=== PATIENT | female | born 1970 | race Caucasian/White ===

== ENCOUNTER 2020-08-28 07:06 | Day surgery (SDC) | payer OTHER ==
[2020-08-23 10:13] LABS: Absolute Lymphocytes (CBC) 3.2 K/uL (0.7-4.9); Basophils % 1.2 % (0-1.3); Hematocrit 38.9 % (36.0-45.0); Lymphocytes % 34.9 % (15.3-44.8); RBC Red Blood Cell Count 4.57 M/uL (3.86-4.86)
[2020-08-23 10:23] LABS: Potassium 3.6 mmol/L (3.5-5.1)
--- NOTE | 2020-08-23 10:48 | RAD REPORT ---
EXAM DESCRIPTION: RAD - Chest Pa And Lat (2 Views) - 08/23/2020 10:19 am CLINICAL HISTORY: pre op Chest pain. COMPARISON: No comparisons FINDINGS: The lungs are clear. The heart is normal in size. No displaced fractures. IMPRESSION: No acute or concerning finding suspected.
--- NOTE | 2020-08-24 09:34 | EKG ---
Test Date: 2020-08-23 Test Time: 09:47:38 Plastic Maker: IRISH MEASUREMENT RESULTS: Intervals: Rate: 82 [place]: 144 QRSD: 82 QT: 380 QTc: 443 [place]: P: 59 [place]: 144 QRS: -34 T: 44 INTERPRETIVE STATEMENTS: Normal sinus rhythm Left axis deviation Abnormal ECG No previous ECG available for comparison Electronically Signed On 08-24-20 09:31:10 CDT by Andrew Padilla
--- OUTSIDE RECORDS SUMMARY | 2020-08-28 07:08 | XMS REPORT ---
:1970 Author Organization [facility] Address [address] [place], [address] [place] [address] Care Team Providers Name Role Phone Clemente Unavailable [phone] PROBLEMS Type Condition ICD9-CM GBC85-LX Onset Condition SNOMED Code Notes Code Code Dates Status Problem Adult ADHD (attention F90.9 Active 292693084 deficit hyperactivity disorder) Problem History of bowel Z90.49 Active 445910406 resection Problem Hypertriglyceridemia E78.1 Active 023083419 Problem Type 2 diabetes E11.65 Active 49204439 mellitus with hyperglycemia, without long-term current use of insulin Problem Hearing loss of right H91.91 Active 085296405 ear, unspecified hearing loss type Problem Insomnia, unspecified G47.00 Active 700004621 type Problem Panic disorder F41.0 Active 686197897 [episodic paroxysmal anxiety] Problem Generalized anxiety F41.1 Active 36846853 disorder ALLERGIES Allergen (clinical Drug/Non Drug Reaction Allergy Type Onset Date S tatus drug ingredient) Allergy documented on EMR levothyroxine Levothyroxine Rash,itching,sever Drug Allergy Active Sodium(ND e irritability Code:[address]-51) latex itching,swelling,a Non Drug Active naphylaxis Allergy levothyroxine Synthroid(ND Rash,itching,sever Drug Allergy Active Code:[address]-86) e irritablility ENCOUNTERS from 1970 to 2020-08-12 Encounter Location Date Provider Diagnosis [facility] [address] Baljeet HERNANDEZ 12 Aug, [facility] [place] Type [address] 2019 with hyperglyce peterson, without Medicine [place] [address] insulin E11.65 ; Elevated BP without diag nosis of hypertension R0 3.0 ; Umbilical herni a without obstruction and without gangrene K42.9 ; Adult ADHD (attention defi cit hyperactivity d isorder) F90.9 ; Insomni a, unspecified typ e G47.00 ; Panic disorder [episodic paroxysmal anxi ety] F41.0 ; Generalized anx iety disorder F41.1 ; Hearing loss of right e ar, unspecified hea ring loss type H91.91 ; H istory of bowel resection Z90.49 and Hypertriglyceri demia E78.1 IMMUNIZATIONS Vaccine Route Administration Date Status Afluria Unknown Jul 03, 2019 Administered Adacel (Tdap) Unknown Sep 01, 2018 Administered SOCIAL HISTORY Tobacco Use: Social History Observation Description Date Details (start date - stop date) Never Smoker Sex Assigned At : Social History Observation Description Sex Assigned At Unknown Alcohol Screen Question Answer Notes Did you have a drink containing alcohol in Yes the past year? Points 3 Interpretation Positive How often did you have a drink containing Two to three times per week (3 alcohol in the past year? points) Tobacco Use/Smoking Question Answer Notes Are you a never smoker REASON FOR REFERRAL No Information VITAL SIGNS Height 64 in Aug, Weight 265 lbs Aug, Temperature 98 degrees Fahrenheit Aug, BMI 45.48 kg/m2 Aug, Blood pressure systolic 128 mm Hg Aug, Blood pressure diastolic 77 mm Hg Aug, MEDICATIONS Medication SIG (Take, Route, Frequency, Start Date End Date Status Duration) Ambien 10 MG 1 tablet at bedtime as needed Active Orally Once a day Clonidine HCl 0.1 MG 1-2 tablets as needed Orally Active Once a day Multi Vitamin Active Synjardy XR 10-1000 MG 1 tablet with breakfast Orally Aug, Nov, Active Once a day for 30 day(s) Adderall 20 MG 1 tablet as needed Orally Active Twice a day PROCEDURES No Information RESULTS No Results REASON FOR VISIT 3 week follow up MEDICAL (GENERAL) HISTORY Type Description Date Surgical History C section 1993 Surgical History Cholescetomy-small stones 2004 Surgical History Left ovary removed 2016 Surgical History Bowel resection due to bowel perforation 2016 Surgical History Colostomy reversed-repair of previous in cision and closure of 2017 colostomy Goals Section No Information Health Concerns No Information MEDICAL EQUIPMENT No Information MENTAL STATUS No Information FUNCTIONAL STATUS No Information ASSESSMENTS Encounter Date Diagnosis Notes Aug, Type 2 diabetes mellitus with hyperglyce peterson, without long-term current use of insulin (ICD-10 - E11.65) Aug, Panic disorder [episodic paroxysmal anxi ety] (ICD-10 - F41.0) Aug, Insomnia, unspecified type (ICD-10 - G47 .00) Aug, Hearing loss of right ear, unspecified h earing loss type (ICD-10 - H91.91) Aug, Elevated BP without diagnosis of hyperte nsion (ICD-10 - R03.0) Aug, Generalized anxiety disorder (ICD-10 - F 41.1) Aug, Adult ADHD (attention deficit hyperactiv ity disorder) (ICD-10 - F90.9) Aug, Umbilical hernia without obstruction and without gangrene (ICD-10 - K42.9) Aug, Hypertriglyceridemia (ICD-10 - E78.1) Aug, History of bowel resection (ICD-10 - Z90 .49) PLAN OF TREATMENT Medication Medication Name Sig Start Date Stop Date Synjardy XR 10-1000 MG 1 tablet with breakfast Orally Once a Aug, Nov, day for 30 day(s) Treatment Notes Assessment Notes Clinical Notes Type 2 diabetes mellitus with New Dx. Will start Synjardy XR hyperglycemia, without long-term 08/1000 QD and Titrate as current use of insulin tolerated. Education given. Side effect dsicussed. Diabetes EducationDiabetes is a disorder that disrupts the way your body uses glucose (sugar). It is a chronic medication condition that requires regular monitoring and treatment throughout your life. Treatment includes: lifestyle modification, self-care measures, and medication. Fortunately, these treatments can keep the blood sugar levels close to normal and minimize the risk of developing complications. The primary blood test to measure the progress of diabetes is the Hemoglobin A1c. Normal levels is less than 7.0 but less than 6.5 is considered excellent control. Fasting blood sugars should be in the range of 80-120 while random blood sugars should range below 200 especially after meals. Carbohydrate (sugar) intake for diabetics should be below 45 grams per meal and 15 grams per snack. Diabetic preventive care is vital to prevent complications, so it is important to have yearly diabetic eye and foot exams with specialists. If your diabetes is not controlled, then contact your doctor to further address.Medication may need to be adjusted and/or added. Elevated BP without diagnosis of DASH Diet discussed. Instru cted hypertension to measure BP at home and bring in log to f/u appt. Instructions and logs given. Education given. Umbilical hernia without obstruction Referral to general josue geon for and without gangrene further evaluation and management. Adult ADHD (attention deficit Managed by Psych. hyperactivity disorder) Insomnia, unspecified type Discussed Good sleep hygiene. Education given. Managed by Psych. Panic disorder [episodic paroxysmal Managed by Psych. anxiety] Generalized anxiety disorder Managed by Psych. Education givne. -- Anxiety Education: Anxiety is a feeling of anxiousness or nervousness. Being extremely anxious or worried on most days for 6 months or longer is not normal. This is a type of anxiety disorder. This disorder can make it hard to do everyday tasks. Other types of anxiety include: post traumatic stress disorder, panic disorder, and phobias.Symptoms of anxiety may include: feeling worried or on the edge, trouble sleeping, or forgetting things. Feelings of stomach aches or chest tightness is another common symptom.Medicine, exercise, and other treatments like counseling, talk therapy, yoga, and massages maybe necessary to treat this disorder. Hypertriglyceridemia Diet-Controlled. Education given. Hyperlipidemia Education: Hyperlipidemia refers to increased levels of lipids(fats) in the blood, including cholesterol and triglycerides. This can significantly increase your risk of developing coronary artery disease and peripheral artery disease. This can cause chest pain, heart attack, stroke, and fatigue. Treatment is recommended to decrease your risk. Treatment includes: lifestyle modification, low salt/low fat diet, exercise, tobacco cessation, low alcohol intake and sometimes medication. Blood tests (TC,TG, HDL, LDL) are utilized to determine treatment regimens. TC(Total cholesterol) should be below 200. TG(Total Triglycerides) should be below 150. HDL(Good cholesterol) should be above 40. LDL(Bad Cholesterol) should be below 130(if you have one risk factor) or less than 100( if you have more than one risk factor or have DM/CAD/PVD). Compliance with medication and treatment is vital. If you have questions, talk to your doctor. Treatment Notes Test Name Order Date Lipid Panel With LDL/HDL Ratio 2020-08-12 Microalbumin/Creat Ratio, Random Ur 2020-08-12 Hemoglobin A1c 2020-08-12 Comp. Metabolic Panel (14) (CMP) 2020-08-12 CBC With Differential/Platelet 2020-08-12 Next Appt Details 3 Months + Labs 1 week before Reason: Provider Name:Heladio [place], 2020-11-07 0 9:30:00 AM, [address], [address], [place], [address], Provider Name:Heladio [place], 2020-11-14 0 2:00:00 PM, [address], [address], [place], [address], Insurance Providers Payer Name Payer Payer Insured Name Patient Coverage Covera End Address Phone Relationship to Start Date Jordon e Insured [employer] [phone] Sheila Kingsley self 2020 [id number] [place] [address]
--- OUTSIDE RECORDS SUMMARY | 2020-08-28 07:08 | XMS REPORT | Continuity of Care Document ---
:1970 Author Organization [facility] t Address [address] [place] [address] Care Team Providers Name Role Phone Unavailable Unavailable Unavailable Problems This patient has no known problems. Allergies, Adverse Reactions, Alerts Allergy Allergy Status Severity Reaction(s) Onset Inactive Treating Comm ents Source Name Type Date Date Clinician Synthroi Adverse Active Rash,itching [facility] Reaction ,severe [facility] - irritablilit [facility] Levothyr Adverse Active Rash,itching [facility] oxine Reaction ,severe [facility] - Sodium irritability [facility]pal [facility] latex Adverse Active itching,swel [facility] Reaction ling,anaphyl Joleen kes - axis [facility] Medications Ordered Filled Start Stop Current Ordering Indication Dosage Frequency Signature Comments Components Source Medication Medication Date Date Medication? Clinician (SIG) Name Name Ambien Ambien Yes Heladio [facility] [place] [facility] Clonidine Clonidine Yes Heladio 1-[address] [facility] HCl HCl [place] tablets as [facility] - needed [facility] Multi Multi Yes Heladio not [facility] Vitamin Vitamin [place] defined [facility] Adderall Adderall Yes Heladio [address] [place] as needed [facility] Procedures This patient has no known procedures. Encounters Start End Encounter Admission Attending Care Care Encounter Source Date/Time Date/Time Type Type Clinicians Facility Department ID 2020-08-12 2020-08-12 Outpatient [facility] [id number] [facility] 2020-07-16 2020-07-16 Outpatient Kamar Mckinney [id number] [facility] 15:30:[facility] 15:30:[address] [facility] Clinics Results This patient has no known results.
--- OUTSIDE RECORDS SUMMARY | 2020-08-28 07:08 | XMS REPORT ---
:1970 Author Organization [employer] Care Team Providers Name Role Phone Clemente Heladio Provider Role Unavailable Allergies, Adverse Reactions, Alerts Substance Reaction Event Type Synthroid Rash,itching,severe irritablility Drug A llergy Levothyroxine Sodium Rash,itching,severe irritability Drug A llergy latex itching,swelling,anaphylaxis Non Drug Al lergy Problems Problem Type Condition Code Onset Dates Condition Statu s Assessment Umbilical hernia without obstruction K42.9 Active and without gangrene Assessment Encounter for wellness examination Z00.00 Active in adult Assessment Elevated BP without diagnosis of R03.0 Active hypertension Problem Panic disorder [episodic paroxysmal F41.0 Active anxiety] Problem Insomnia, unspecified type G47.00 A ctive Problem Generalized anxiety disorder F41.1 Active Problem Adult ADHD (attention deficit F90.9 Active hyperactivity disorder) Problem Hearing loss of right ear, H91.91 A ctive unspecified hearing loss type Problem History of bowel resection Z90.49 A ctive Assessment History of bowel resection Z90.49 A ctive Assessment Panic disorder [episodic paroxysmal F41.0 Active anxiety] Assessment Insomnia, unspecified type G47.00 A ctive Assessment Hearing loss of right ear, H91.91 A ctive unspecified hearing loss type Assessment Adult ADHD (attention deficit F90.9 Active hyperactivity disorder) Assessment Generalized anxiety disorder F41.1 Active Assessment Prediabetes R73.03 Active Medications Medication Code Code Instructions Start End Status Dosage System Date Date Ambien [facility] 23374515070 10 MG Orally Active 1 table t Once a day at bedtime as needed Clonidine HCl [facility] 89715250733 0.1 MG Orally Active 1-2 Once a day tablets as needed Multi Vitamin [facility] [address]-36 Active not defined Adderall [facility] 66879069456 20 MG Orally Active 1 tabl et Twice a day as needed Results No Known Results Summary Purpose [employer] Submission
[2020-08-28 07:25] LABS: Specific Gravity >= 1.030 (1.005-1.030)
[2020-08-28] MEDS ORDERED: NA CHLORIDE 0.9% 1,000 ML ONE (07:26)
[2020-08-28] MEDS ORDERED: CEFAZOLIN/SWI 1gm 1 GM/10 ML SYR ONE (07:57)
[2020-08-28] MEDS ORDERED: MIDAZOLAM HCL 2 MG/2 ML INJ ONE (07:59)
[2020-08-28] MEDS ORDERED: LIDOCAINE 1% MPF 5 ML VIAL ONE (07:59)
[2020-08-28] MEDS ORDERED: FENTANYL CITR 100 MCG/2 ML ONE ×3 (07:59→09:53)
[2020-08-28] MEDS ORDERED: propofoL 200 MG/20 ML VIAL IV ONE (07:59)
[2020-08-28] MEDS ORDERED: ROCURONIUM 50 MG/5 ML VIAL IV ONE (08:00)
[2020-08-28] MEDS ORDERED: SUCCINYLCHOLINE 20 MG/ML (10 ML) IV ONE (08:24)
[2020-08-28] MEDS ORDERED: KETOROLAC 30 MG/ML INJ ONE (08:45)
[2020-08-28] MEDS ORDERED: ONDANSETRON 4 MG/2 ML VIAL ONE ×3 (08:45→12:22)
[2020-08-28] MEDS ORDERED: GLYCOPYRROLATE 0.2 MG/ML SYR ONE (09:20)
--- NOTE | 2020-08-28 09:42 | P.BOP ---
Preoperative diagnosis: abd pain, incarcerated incisional ventral hernia Postoperative diagnosis: multiple incarcerated incisional ventral hernia midline and left lower abd Primary procedure: 1. Open repair of incarcerated incisional midline ventral hernia Secondary procedure: 2. Open repair incarcerated incisional left lower abd ostomy hernia Other procedure(s): 3. extensive lysis of adhesions Estimated blood loss: <50cc Specimen: hernia sac x 2 Findings: two hernia separate location and separate incision to fix it Anesthesia: General Complications: None Transferred to: Recovery Room Condition: Good
[2020-08-28] MEDS ORDERED: NEOSTIGMINE 1 MG/ML -5 ML ONE (09:48)
[2020-08-28] MEDS: HYDROMORPHONE HCL 1 MG/ML INJ ONE ×6 (10:01→10:27)
[2020-08-28] MEDS ORDERED: MEPERIDINE HCL 25 MG/ML SYR ONE (10:22)
[2020-08-28] MEDS ORDERED: HYDROCODONE/APAP 7.5/325 MG TAB ONE (11:56)
[2020-08-28] MEDS ORDERED: CODEINE 30MG/APAP 300MG TAB ONE (12:56)
[2020-08-28 12:59] VITALS: BP 144/56; TEMP 97.1; O2SAT 98
--- NOTE | 2020-08-30 22:51 | OP ---
Date of Procedure: 08/28/2020 Surgeon: Mike Rees MD Preoperative Diagnoses: Abdominal pain, incarcerated incisional ventral hernia. Postoperative Diagnoses: Abdominal pain, multiple incarcerated incisional ventral hernia, midline an d left lower quadrant, 2 different incisions, 2 different hernias in different locations. Procedures: 1.Open repair of an incarcerated incisional midline ventral hernia. 2.Open repair of an incarcerated incisional left lower abdominal ostomy site hernia. 3.Extensive lysis of adhesions. Estimated Blood Loss: Less than 5 cc. Specimens: Hernia sac from a midline incision and from the left lower quadrant. Findings: As mentioned before, 2 separate hernias, 2 different locations. The midline incision has a hernia and also she has what used to be an ostomy site in the left lower quadrant and that one also have hernia and have to be repaired. To do that, we have to do mini-laparotomy to be able to enter the abdomen and go to extensive adhesions to be able to address the 2 issues. Complications: None. Indications: This is the case of a female who has history of multiple abdominal surgeries for bowel resection. Apparently, she had laparotomy for emergency complications. Also, the patient had previo us ostomy that was taken down eventually and then patient developed this midline incision and also te nderness to the left lower quadrant. The patient asked me to take a look at that area. Since the mi dline incision is large enough, I explained to her we may be looking at the left lower quadrant, alth ough we may encounter many adhesions. The benefits, alternatives, and risks of hernia repair were fu lly explained, which include, but not limited to infection, bleeding, damage to adjacent structures, anesthesia complication, recurrence, MA, and even . She also understands this may not relieve t he symptoms. She might need more than one surgical intervention. She understood and signed a consen t. She understands the importance of no heavy lifting and also losing weight. Description Of Procedure: The patient was brought to the operating room and placed in supine positio n. Anesthesia was done without complication. Abdominal area was prepped and draped in a sterile fas hion. A time-out was called. After that, a midline incision was made over the midline incisional he rnia. Incision was carried down to fascia. Fascia edges were identified. Hernia sac was opened, no ticed incarcerated omentum that carefully removed after multiple adhesions. The patient also has sma ll bowel coming through it, but after adhesions, we were able to reduce that and then clean the fasci a edges. Using Rach's and using Massey retractors, we were able to go into the left lower quad rant without encountering extensive adhesions that have to be removed. Once we did that, we noticed that she was right. She has an incisional hernia also in the left lower quadrant. At that moment si nce it was too far away, we proceeded to make an incision in that region. Incision was carried down to fascia. Hernia sac was identified. We noticed incarcerated omentum in that region that was caref ully reduced into the abdominal cavity, fully inspected, hernia edges were identified, sac was remove d, and then we proceeded to close that defect with a [id number] fashion #1 Prolene. The area wa s irrigated. Subcutaneous tissue was closed with 3-0 chromic and then skin was approximated. We mary l refer back to the abdominal cavity hernia. Once again, we checked the area of lysis of adhesions a fter irrigation and suction. We proceeded then to close the defects once again in the [id number]-gy-ogrd [id number] fashion until the entire defect was closed. The area was irrigated, subcutaneous tissue closed wit h 3-0 chromic, and the skin was approximated. Sponge count and instrument counts were correct. The patient tolerated the procedure well. The patient was sent to recovery in stable condition. Disposition: Home. Activity: As tolerated. No heavy lifting. Plan: Follow up in my office in 1 week. Call for appointment at [phone]. Abdominal binder while s he is out of bed. Medications: See orders. KASSANDRA/MODL Voice ID: [id number] Report ID: [id number]
== END 2020-08-28 12:50 | disposition home or self-care (01) ==
LOC: OR 07:06
PROVIDERS: ATTEND Surgery
PROC: 0WQF0ZZ Repair Abdominal Wall, Open Approach (ICD-10-PCS; 2020-08-28)
PROC: 0DNU0ZZ Release Omentum, Open Approach (ICD-10-PCS; 2020-08-28)
PROC: 0WQF0ZZ Repair Abdominal Wall, Open Approach (ICD-10-PCS; principal; 2020-08-28 08:15)
DX: K43.6 Other and unspecified ventral hernia with obstruction, without gangrene (principal); Z20.828 Contact with and (suspected) exposure to other viral communicable diseases; Z91.040 Latex allergy status; Z88.8 Allergy status to other drugs, medicaments and biological substances
CPT/HCPCS: 93005; 85025; 80048; 36415; 81025; 82947 ×2; 88302; 71046; 49561 ×2; 49999; U0002; J2704; J0330; J2250; J3010 ×3; J2175; J1170 ×3; J2710; J0690; J7030; J2405 ×3

== ENCOUNTER 2024-06-20 01:27 | Observation (INO) | payer OTHER ==
[2024-06-20] MEDS ORDERED: ASPIRIN 81 MG CHEWABLE TABLET ONE (01:41)
[2024-06-20] MEDS ORDERED: NITROGLYCERIN 0.4 MG/TAB SL ONE (01:42)
[2024-06-20 02:35] LABS: Absolute Basophils 0.1 K/uL (0-0.5); Absolute Eosinophils 0.2 K/uL (0-0.5); Absolute Lymphocytes (CBC) 2.8 K/uL (0.7-4.9); Absolute Monocytes 0.4 K/uL (0.1-1.3); Absolute Neutrophil 4.3 K/uL (1.8-8.0); Basophils % 1.3 % (0-1.3); Eosinophils % 2.1 % (0-4.4); Hematocrit 36.2 % (36.0-45.0); Hemoglobin 11.6 g/dL (12.0-15.0); Lymphocytes % 35.6 % (15.3-44.8); MCH 26.7 pg (27.0-35.0); MCV 83.3 fL (80-100); MPV 6.8 fL (7.6-11.3); Monocytes % 5.3 % (3.3-12.3); Neutrophils % 55.7 % (41.7-73.7); Platelets 365 thou/uL (152-406); RBC Red Blood Cell Count 4.35 M/uL (3.86-4.86)
[2024-06-20 02:51] LABS: ALT/SGPT 67 U/L (13-56); AST/SGOT 100 U/L (15-37); Albumin 3.1 g/dL (3.4-5.0); Albumin/Globulin Ratio 0.9 (1.1-1.8); Alkaline Phosphatase 120 U/L (45-117); Anion Gap 9.2 mEq/L (5.0-15.0); BUN Blood Urea Nitrogen 28 mg/dL (7-18); Bicarbonate 22 mEq/L (21-32); Bilirubin Total 0.3 mg/dL (0.2-1.0); Globulin 3.5 g/dL (2.3-3.5); Glomerular Filtration Rate 90 ml/min (=/>90); Glucose Level 143 mg/dL (74-106); Lipase 56 U/L (13-75); Magnesium 1.9 mg/dL (1.6-2.4); Potassium 3.2 mEq/L (3.5-5.1); Protein, Total 6.6 g/dL (6.4-8.2); Sodium Level 137 mEq/L (136-145); Troponin High Sensitivity 3.2 pg/mL (<58.9)
[2024-06-20 02:57] LABS: Bilirubin Direct < 0.2 mg/dL (0-0.2); Bilirubin Indirect, Calculated 0.1 mg/dL (0.2-0.8)
--- NOTE | 2024-06-20 04:54 | ER ---
Nurse's Notes [facility] Name: Mattie Trotter Age: 54 yrs Sex: Female : 1970 Arrival Date: 06/20/2024 Time: 01:27 Bed 5 Private MD: Diagnosis: Chest pain, unspecified Presentation: 06/20 01:51 Chief complaint: Patient states: woke up with severe epigastric pain, worsened after vc1 taking medications. Coronavirus screen: Client denies travel out of the [place] in the last 14 days. At this time, the client does not indicate any symptoms associated with coronavirus-19. Ebola Screen: Patient negative for fever greater than or equal to 101.5 degrees Fahrenheit, and additional compatible Ebola Virus Disease symptoms Patient denies exposure to infectious person. Patient denies travel to an Ebola-affected area in the 21 days before illness onset. No symptoms or risks identified at this time. Initial Sepsis Screen: Does the patient meet any 2 criteria? No. Patient's initial sepsis screen is negative. Does the patient have a suspected source of infection? No. Patient's initial sepsis screen is negative. Risk Assessment: Do you want to hurt yourself or someone else? Patient reports no desire to harm self or others. Onset of symptoms was June 20, 2024. 01:51 Method Of Arrival: Ambulatory vc1 01:51 Acuity: ADDIE 3 vc1 Triage Assessment: 01:55 General: Appears in no apparent distress. uncomfortable, well groomed, well developed, vc1 well nourished, Behavior is calm, cooperative, appropriate for age. Pain: Complains of pain in epigastric area Pain does not radiate. Pain currently is 4 out of 10 on a pain scale. at worst was 9 out of 10 on a pain scale. Quality of pain is described as squeezing, Pain began suddenly, Is continuous, Noted to be grimacing. EENT: No deficits noted. No signs and/or symptoms were reported regarding the EENT system. Neuro: Level of Consciousness is awake, alert, obeys commands, Oriented to person, place, time, situation, Appropriate for age. Cardiovascular: Capillary refill < 3 seconds Patient's skin is warm and dry. Chest pain is described as severe, quality is squeezing, is located in epigastric area began suddenly, episodes are continuous. Respiratory: Airway is patent Respiratory effort is even, unlabored, Respiratory pattern is regular, symmetrical, Breath sounds are clear bilaterally. GI: Abdomen is round non-distended, Bowel sounds present X 4 quads. Abd is soft Abdomen is tender to palpation in right upper quadrant and left upper quadrant. : No deficits noted. No signs and/or symptoms were reported regarding the genitourinary system. Derm: Skin is intact, is healthy with good turgor, Skin is dry, Skin is normal, Skin temperature is warm. Musculoskeletal: Circulation, motion, and sensation intact. Capillary refill < 3 seconds, Range of motion: intact in all extremities. ONCOLOGY COORDINATOR: 01:54 LMP 06/15/2024, unknown vc1 Historical: - Allergies: 01:53 No Known Allergies; vc1 - Home Meds: 01:53 Mounjaro 5 mg/0.5 mL subcutaneous Pen Injector every week for type 2 diabetes mellitus vc1 [Active]; Albuterol Inhl [Active]; - PMHx: 01:53 Diabetes mellitus; Asthma; vc1 - PSHx: 01:53 None; vc1 - Immunization history:: Client reports having NOT received the Covid vaccine. - Infectious Disease History:: Denies. - Social history:: Smoking status: Patient denies any tobacco usage or history of. - Family history:: not pertinent. Screenin:[facility] ED Fall Risk Assessment (Adult) History of falling in the last 3 months, vc1 including since admission No falls in past 3 months (0 pts) Confusion or Disorientation No (0 pts) Intoxicated or Sedated No (0 pts) Impaired Gait No (0 pts) Mobility Assist Device Used No (0 pt) Altered Elimination No (0 pt) Score/Fall Risk Level 0 - 2 = Low Risk Oriented to surroundings, Maintained a safe environment, Educated pt \T\ family on fall prevention, incl call for assistance when getting out of bed. Abuse screen: Denies threats or abuse. Nutritional screening: No deficits noted. Tuberculosis screening: No symptoms or risk factors identified. Assessment: 01:59 General: See triage assessment. Pain: Complains of pain in epigastric area Pain does vc1 not radiate. Pain currently is 4 out of 10 on a pain scale. at worst was 9 out of 10 on a pain scale. Pain began suddenly, Also complains of diaphoresis, near syncopal episode. 03:02 Reassessment: Patient appears in no apparent distress at this time. Patient and/or jb4 family updated on plan of care and expected duration. Pain level reassessed. Patient is alert, oriented x 3, equal unlabored respirations, skin warm/dry/pink. 03:28 Reassessment: Patient and/or family updated on plan of care and expected duration. Pain vc1 level reassessed. Patient is alert, oriented x 3, equal unlabored respirations, skin warm/dry/pink. Patient denies pain at this time. Patient states feeling better. Patient states symptoms have improved. 04:30 Reassessment: Patient appears in no apparent distress at this time. Patient and/or jb4 family updated on plan of care and expected duration. Pain level reassessed. Patient is alert, oriented x 3, equal unlabored respirations, skin warm/dry/pink. 05:46 Reassessment: Patient appears in no apparent distress at this time. Patient and/or jb4 family updated on plan of care and expected duration. Pain level reassessed. Patient is alert, oriented x 3, equal unlabored respirations, skin warm/dry/pink. 07:03 Reassessment: Patient and/or family updated on plan of care and expected duration. Pain ap3 level reassessed. Patient is alert, oriented x 3, equal unlabored respirations, skin warm/dry/pink. General: Appears in no apparent distress. Behavior is calm, cooperative, appropriate for age. Neuro: Level of Consciousness is awake, alert, obeys commands, Oriented to person, place, time, situation, Appropriate for age Speech is normal. Cardiovascular: Patient's skin is warm and dry. Respiratory: Airway is patent Respiratory effort is even, unlabored, Respiratory pattern is regular, symmetrical. 11:18 Reassessment: Report faxed. confirmed by Rosario. ap3 Vital Signs: 01:51 BP 150 / 75; Pulse 76; Resp 13; Temp 97.2; Pulse Ox 99% ; Weight 97.98 kg; Height 5 ft. vc1 4 in. ; Pain 4/10; 03:02 BP 119 / 70; Pulse 79; Resp 15; Pulse Ox 99% on R/A; jb4 04:30 BP 131 / 70; Pulse 79; Resp 16; Pulse Ox 96% on R/A; jb4 05:30 BP 157 / 84; Pulse 79; Resp 16; Pulse Ox 98% on R/A; jb4 06:45 BP 142 / 77; Pulse 70; Resp 16; Pulse Ox 98% ; pc2 01:51 Body Mass Index 37.08 (97.98 kg, 162.56 cm) vc1 01:51 Pain Scale: Adult vc1 ED Course: 01:28 Patient arrived in ED. jj6 01:28 Cruz Montalvo MD is Attending Physician. rt 01:51 Marli Bill RN is Primary Nurse. vc1 01:53 Triage completed. vc1 01:58 EKG done, by ED staff. vk 01:59 Arm band placed on left wrist. vc1 02:00 Inserted saline lock: 20 gauge in right forearm, using aseptic technique. Blood vc1 collected. Flushed with 10 mL NS. Patient maintains SpO2 saturation greater than 95% on room air. 02:00 Patient has correct armband on for positive identification. Placed in gown. Bed in low vc1 position. Call light in reach. Side rails up X2. Adult w/ patient. clinical research monitor on. Pulse ox on. NIBP on. 02:02 Notified primary nurse of labs need to be recollected. kmf 02:04 XRAY Chest (1 view) In Process Unspecified. EDMS 04:09 CT Abd/Pelvis - IV Contrast Only In Process Unspecified. EDMS 04:53 Jerome Johnston MD is Hospitalizing Provider. rt 06:05 Report received from Rajat LOZADA. pc2 06:05 Provided Education on: need for admit. pc2 06:06 No provider procedures requiring assistance completed. pc2 07:01 Report given to NEVILLE Betancourt. pc2 07:03 Report received from brenda. ap3 11:23 Patient admitted, IV remains in place. ap3 Administered Medications: 01:48 Drug: Aspirin PO Chewable Tablet 324 mg PO once; 81 mg tablets x 4 Route: PO; jb4 06:05 Follow up: Response: No adverse reaction pc2 01:48 Drug: Nitroglycerin Sublingual 0.4 mg Sublingual once; every five minute if needed x3 jb4 Route: Sublingual; 06:05 Follow up: Response: No adverse reaction pc2 Medication: 02:00 VIS not applicable for this client. vc1 Outcome: 04:53 Decision to Hospitalize by Provider. rt 11:23 Condition: good ap3 11:23 Discharge instructions given to patient, Instructed on the need for admit, Demonstrated understanding of instructions, 12:51 Admitted to Med/surg accompanied by nurse, room 205, ap3 12:52 Patient left the ED. ap3 Signatures: Dispatcher [employer] EDMS George Shabazz, RN RN jb4 Asia Figueroa RN RN ap3 Angelica Diaz6 Marli Bill RN RN vc1 Cruz Montalvo MD MD rt Mercedes Espinal Vivian vk Coleman, Pam, RN RN pc2
--- NOTE | 2024-06-20 04:54 | EDPHYS ---
Physician Documentation [facility] Name: Mattie Trotter Age: 54 yrs Sex: Female : 1970 Arrival Date: 06/20/2024 Time: 01:27 Bed 5 Private MD: ED Physician Cruz Montalvo HPI: 06/20 02:45 This 54 yrs old Female presents to ER via Ambulatory with complaints of Chest Pain. rt 02:45 Patient presents to the ED with a lower chest pain starting tonight. She took Tums, did rt not improve her symptoms, worsened them. Patient reports that she was sweating at that time, dizziness, almost passed out. States the symptoms have improved, not completely resolved. Denies other acute complaints at this time, symptoms are moderate in severity, no other aggravating or alleviating factors.. WORKFORCE MANAGEMENT COORDINATOR: 01:54 LMP 06/15/2024, unknown vc1 Historical: - Allergies: 01:53 No Known Allergies; vc1 - Home Meds: 01:53 Mounjaro 5 mg/0.5 mL subcutaneous Pen Injector every week for type 2 diabetes mellitus vc1 [Active]; Albuterol Inhl [Active]; - PMHx: 01:53 Diabetes mellitus; Asthma; vc1 - PSHx: 01:53 None; vc1 - Immunization history:: Client reports having NOT received the Covid vaccine. - Infectious Disease History:: Denies. - Social history:: Smoking status: Patient denies any tobacco usage or history of. - Family history:: not pertinent. ROS: 02:47 Constitutional: Negative for fever, chills, and weight loss, Respiratory: Negative for rt shortness of breath, cough, wheezing, and pleuritic chest pain, MS/Extremity: Negative for injury and deformity, Skin: Negative for injury, rash, and discoloration, Neuro: Negative for headache, weakness, numbness, tingling, and seizure, Psych: Negative for depression, anxiety, suicide ideation, homicidal ideation, and hallucinations, 02:47 Cardiovascular: Positive for chest pain, Negative for edema, 02:47 Abdomen/GI: Positive for nausea, Negative for vomiting, Exam: 02:47 Constitutional: This is a well developed, well nourished patient who is awake, alert, rt and in no acute distress. Head/Face: Normocephalic, atraumatic. Chest/axilla: Normal chest wall appearance and motion. Nontender with no deformity. No lesions are appreciated. Cardiovascular: Regular rate and rhythm with a normal S1 and S2. No gallops, murmurs, or rubs. Normal PMI, no JVD. No pulse deficits. Respiratory: Lungs have equal breath sounds bilaterally, clear to auscultation and percussion. No rales, rhonchi or wheezes noted. No increased work of breathing, no retractions or nasal flaring. Abdomen/GI: Soft, non-tender, with normal bowel sounds. No distension or tympany. No guarding or rebound. No evidence of tenderness throughout. Skin: Warm, dry with normal turgor. Normal color with no rashes, no lesions, and no evidence of cellulitis. MS/ Extremity: Pulses equal, no cyanosis. Neurovascular intact. Full, normal range of motion. Neuro: Awake and alert, GCS 15, oriented to person, place, time, and situation. Cranial nerves II-XII grossly intact. Motor strength 5/5 in all extremities. Sensory grossly intact. Cerebellar exam normal. Normal gait. 02:47 ECG was reviewed by the Attending Physician. Vital Signs: 01:51 BP 150 / 75; Pulse 76; Resp 13; Temp 97.2; Pulse Ox 99% ; Weight 97.98 kg; Height 5 ft. vc1 4 in. ; Pain 4/10; 03:02 BP 119 / 70; Pulse 79; Resp 15; Pulse Ox 99% on R/A; jb4 04:30 BP 131 / 70; Pulse 79; Resp 16; Pulse Ox 96% on R/A; jb4 05:30 BP 157 / 84; Pulse 79; Resp 16; Pulse Ox 98% on R/A; jb4 06:45 BP 142 / 77; Pulse 70; Resp 16; Pulse Ox 98% ; pc2 01:51 Body Mass Index 37.08 (97.98 kg, 162.56 cm) vc1 01:51 Pain Scale: Adult vc1 MDM: 01:37 Patient medically screened. rt 04:54 Differential diagnosis: ACS, CAD, nonspecific chest pain, pneumonia. HEART Score: rt History: Highly Suspicious (2), ECG: Normal (0), Age: > 45 and < 65 years (1), Risk Factors: 1 or 2 risk factors (1), Troponin: < or = 1 x Normal Limit (0), Total Score = 4. The patient was given aspirin in the Emergency Department. Data reviewed: vital signs, nurses notes, lab test result(s), EKG, radiologic studies. Consideration of Admission/Observation Patient was admitted/placed on observation. Management of patient was discussed with the following: Hospitalist: Agrees to admit. I considered the following discharge prescriptions or medication management in the emergency department Medications were administered in the Emergency Department. See MAR. Independent interpretation of the following test(s) in the Emergency Department X-Ray: My interpretation is No pneumonia seen on interpretation of x-ray images. Care significantly affected by the following chronic conditions: Diabetes. Counseling: I had a detailed discussion with the patient and/or guardian regarding the historical points, exam findings, and any diagnostic results supporting the discharge/admit diagnosis, lab results, radiology results, the need for further work-up and treatment in the hospital. Response to treatment: the patient's symptoms have markedly improved after treatment. 06/20 01:37 Order name: Basic Metabolic Panel; Complete Time: 03:00 rt 06/20 01:37 Order name: CBC with Diff; Complete Time: 03:00 rt 06/20 01:37 Order name: LFT's; Complete Time: 03:00 rt 06/20 01:37 Order name: Magnesium; Complete Time: 03:00 rt 06/20 01:37 Order name: Troponin HS; Complete Time: 03:00 rt 06/20 01:37 Order name: Lipase; Complete Time: 03:00 rt 06/20 06:02 Order name: Urinalysis w/ reflexes EDMS 06/20 06:02 Order name: CBC with Automated Diff EDMS 06/20 06:02 Order name: CBC with Automated Diff EDMS 06/20 06:02 Order name: Comprehensive Metabolic Panel EDMS 06/20 06:02 Order name: Comprehensive Metabolic Panel EDMS 06/20 06:02 Order name: Troponin High Sensitivity EDMS 06/20 06:02 Order name: Troponin High Sensitivity EDMS 06/20 06:02 Order name: Troponin High Sensitivity EDMS 06/20 06:02 Order name: Troponin High Sensitivity EDMS 06/20 01:37 Order name: XRAY Chest (1 view) rt 06/20 03:11 Order name: CT Abd/Pelvis - IV Contrast Only rt 06/20 01:37 Order name: EKG; Complete Time: 01:38 rt 06/20 01:37 Order name: Cardiac monitoring; Complete Time: 01:57 rt 06/20 01:37 Order name: EKG - Nurse/Tech; Complete Time: 01:57 rt 06/20 01:37 Order name: IV Saline Lock; Complete Time: 02:01 rt 06/20 01:37 Order name: Labs collected and sent; Complete Time: 02:01 rt 06/20 01:37 Order name: O2 Per Protocol; Complete Time: 01:57 rt 06/20 01:37 Order name: O2 Sat Monitoring; Complete Time: 01:58 rt 06/20 02:02 Order name: Misc. Order: recollect labs; Complete Time: 02:20 kmf EC:47 Rate is 81 beats/min. Rhythm is regular, Normal Sinus Rhythm with No ectopy. QRS [place] rt is Normal. [place] interval is normal. QRS interval is normal. QT interval is normal. No Q waves. No ST changes noted. Interpreted by me. Administered Medications: 01:48 Drug: Aspirin PO Chewable Tablet 324 mg PO once; 81 mg tablets x 4 Route: PO; jb4 06:05 Follow up: Response: No adverse reaction pc2 01:48 Drug: Nitroglycerin Sublingual 0.4 mg Sublingual once; every five minute if needed x3 jb4 Route: Sublingual; 06:05 Follow up: Response: No adverse reaction pc2 Disposition Summary: 06/20/24 04:53 Hospitalization Ordered Notes: Hospitalization Status: Observation rt Provider: Jerome Johnston rt Condition: Stable rt Problem: new rt Symptoms: have improved rt Bed/Room Type: Standard rt Location: Telemetry/MedSurg (observation)(06/20/24 12:12) ja1 Room Assignment: 205(06/20/24 12:12) ja1 Diagnosis - Chest pain, unspecified rt Forms: - Medication Reconciliation Form rt - SBAR form rt - Leadership Thank You Letter rt Signatures: Dispatcher [employer] Audrey Prakash Cindy, RN RN George Shabazz RN RN jb4 Quirino Miller RN RN jl7 Vickey Guthrie RN RN ja1 Marli Bill RN RN 1 Cruz Montalvo MD MD rt Mercedes Espinal kmf Paloma Kelley RN pc2 Corrections: (The following items were deleted from the chart) 01:38 01:38 BASIC METABOLIC PANEL+C.LAB.BRZ ordered. EDMS EDMS 01:38 01:38 CBC+H.LAB.BRZ ordered. EDMS EDMS 01:38 01:38 HEPATIC FUNCTION+C.LAB.BRZ ordered. EDMS EDMS 01:38 01:38 MAGNESIUM+C.LAB.BRZ ordered. EDMS EDMS 01:38 01:38 Troponin High Sensitivity+C.LAB.BRZ ordered. EDMS EDMS 01:38 01:38 LIPASE+C.LAB.BRZ ordered. EDMS EDMS 05:24 04:53 Telemetry/MedSurg (observation) rt cg 05:24 04:53 rt cg 11:10 05:24 [facility] ER HOLD cg bd 11:10 05:24 ERHOLD- cg bd 11:44 11:10 205 bd bd 12:10 11:10 Telemetry/MedSurg (observation) bd jl7 12:10 11:44 bd jl7 12:12 12:10 [facility] ER HOLD jl7 ja1 12:12 12:10 ERHOLD- jl7 ja1
[2024-06-20] MEDS ORDERED: ACETAMINOPHEN 325 MG TABLET PO PRN (05:58)
[2024-06-20] MEDS ORDERED: ONDANSETRON 4 MG/2 ML VIAL IV PRN (05:58)
--- NOTE | 2024-06-20 07:03 | P.HP ---
Certification for Inpatient Patient admitted to: Observation With expected LOS: <2 Midnights Patient will require the following post-hospital care: None Practitioner: I am a practitioner with admitting privileges, knowledge of patient current condition, hospital course, and medical plan of care. Services: Services provided to patient in accordance with Admission requirements found in Title 42 Section 412.3 of the Code of Federal Regulations Patient History Date of Service: 06/20/24 Reason for admission: chest pain r/o History of Present Illness: Mattie Trotter is a 54 year old female with Pmhx asthma and DM2 (mounjaro) who presents to the ED with chief complaint of chest pain/epigastric pain associated with Sweating, dizziness and almost passing out. She reports feeling epigastric pain and took antacids without relief. Her stomach continued to tighten and then started to sweat and feeling dizzy. She was wondering if this could be caused by the Mounjaro that she has been using for one month. She also reports her father having an OH with these similar symptoms as she has experienced. Initial vitals BP 150 / 75; Pulse 76; Resp 13; Temp 97.2; Pulse Ox 99% EKG preliminary read :Rate is 81 beats/min. Rhythm is regular, Normal Sinus Rhythm with No ectopy. QRS [place] is Normal. [place] interval is normal. QRS interval is normal. QT interval is normal. No Q waves. No ST changes noted laboratory evaluation Potassium 3.2, Serum glucose 143, Torponin 3.2, AST/ALT 100/67 Mattie will be admitted to hospitalist service for further evaluation of chest and epigastric pain. Allergies loratadine [From Claritin] Allergy (Severe, Verified 06/20/24 13:03) aggitation latex Allergy (Verified 08/23/20 09:36) Anaphylaxis levothyroxine sodium [From Synthroid] Allergy (Verified 08/23/20 09:36) Itching/Hives/Rash nectarines Allergy (Uncoded 08/23/20 09:36) Anaphylaxis Home Medications: Albuterol Inhaler [Ventolin Inhaler] 2 puff IH Q6H PRN 08/23/20 Zolpidem Tartrate [Ambien] 10 mg PO BEDTIME 08/23/20 Azelastine HCl [Astepro] 1 spray KAVEH DAILY 06/20/24 Empagliflozin [Jardiance] 25 mg PO DAILY 06/20/24 Fexofenadine HCl [Carmen Allergy] 60 mg PO DAILY 06/20/24 Fluticasone [Flonase 50MCG Nasal Wilson*] 2 sprays KAVEH DAILY 06/20/24 Metformin ER [Glucophage ER*] 500 mg PO DAILY 06/20/24 Progesterone, Micronized [Progesterone] 200 mg PO BEDTIME 06/20/24 Tirzepatide [Mounjaro] 5 mg SQ SEECOM 06/20/24 Trazodone [Desyrel*] 50 mg PO BEDTIME 06/20/24 - Past Medical/Surgical History -: Asthma -: Diabetes mellitus -: Acid reflux - Family History Father -: Other (see notes) ([place]) - Social History Smoking Status: Never smoker Alcohol use: No CD- Drugs: No Review of Systems General: Sweats Cardiovascular: Chest Pain Gastrointestinal: Nausea, Abdominal Pain Neurological: Other (Dizziness) Physical Examination - Physical Exam General: Alert, In no apparent distress, Oriented x3 HEENT: Atraumatic, Normocephalic, PERRLA Neck: Supple Respiratory: Clear to auscultation bilaterally, Normal air movement Cardiovascular: No edema, Normal pulses, Regular rate/rhythm, Normal S1 S2 Capillary refill: <2 Seconds Gastrointestinal: Normal bowel sounds, Soft and benign Musculoskeletal: No swelling Integumentary: No rashes Neurological: Normal speech, Normal tone - Studies Laboratory Data (last 24 hrs) 06/20/24 06/20/24 02:15 02:15 WBC 7.70 Hgb 11.6 L Hct 36.2 Plt Count 365 Sodium 137 Potassium 3.2 L BUN 28 H Creatinine 0.78 Glucose 143 H Magnesium 1.9 Total Bilirubin 0.3 AST 100 H ALT 67 H Alkaline Phosphatase 120 H Lipase 56 Assessment and Plan - Plan Assessment and plan Chest pain rule out - EKG: No obvious ST segment changes - Serial troponin 3.2/<3.0, <3.0 - transthoracic echocardiogram per cardiology if necessary - chest x-ray reports "No acute findings in the chest." - Consult Cardiology - recommendations appreciated - S/P aspirin 324 mg PO x 1 in ED - Start daily baby aspirin and statin - Symptom control with PRN acetaminophen, nitroglycerin, morphine - continuous telemetry - TSH/FreeT4, A1C, lipid panel pending History of GERD -presents with epigastric pain -Protonix and carafate Diabetes mellitus - on mounjaro for one month -serum glucose 143 -A1C in the AM Hypokalemia -K 3.2 -replaced -monitor in AM labs Transaminitis -AST 100, ALT 67 -Gentle IVF -Monitor in AM labs History of asthma -continue home medications DVT ppx lovenox FUll code LOS 24 OBS Discharge Plan: Home Plan to discharge in: 24 Hours - Advance Directives Does patient have a Living Will: No Does patient have a Durable POA for Healthcare: No
[2024-06-20 08:06] VITALS: BMI 37.0
[2024-06-20] MEDS: ENOXAPARIN 40 MG/0.4 ML SQ SCH (09:00)
[2024-06-20] MEDS ORDERED: ENOXAPARIN 40 MG/0.4 ML SQ ONE (10:48)
--- NOTE | 2024-06-20 11:03 | RAD REPORT ---
EXAM DESCRIPTION: CT Abdomen and Pelvis With Intravenous Contrast CLINICAL HISTORY: The patient is 54 years old and is Female; Abdomen pain. TECHNIQUE: Axial computed tomography images of the abdomen and pelvis with intravenous contrast. S agittal and coronal reformatted images were created and reviewed. This CT exam was performed using one or more of the following dose reduction techniques: automated exposure control, adjustment of t he mA and/or kV according to patient size, and/or use of iterative reconstruction technique. COMPARISON: No relevant prior studies available. FINDINGS: Lung bases: Unremarkable. No mass. No consolidation. ABDOMEN: Liver: Hepatomegaly. Gallbladder and bile ducts: Cholecystectomy without choledocholithiasis. No ductal dilation. Pancreas: No findings to suggest acute pancreatitis. No mass visualized. No ductal dilation. Spleen: Unremarkable. No splenomegaly. Adrenals: Unremarkable. No mass. Kidneys and ureters: Unremarkable. No solid mass. No hydronephrosis. Stomach and bowel: Previous sigmoid colon resection/anastomosis. Colonic diverticulosis. No bowel dilatation or obstruction. No bowel wall thickening. Broad ventral abdominal wall hernia containing fat and bowel loops. No gastric wall thickening. PELVIS: Appendix: The visualized appendix is normal. No pericecal inflammation to suggest acute appendici tis. Bladder: Unremarkable. No mass. Reproductive: Uterus is present. Right lateral intramural fibroid 2 cm. No adnexal mass visualize d. ABDOMEN and PELVIS: Intraperitoneal space: Unremarkable. No free air. No significant fluid collection. Bones/joints: Degenerative facet arthropathy in the lower lumbar spine. 5 mm anterolisthesis L4-L 5. No acute fracture. No dislocation. Soft tissues: See above. Vasculature: Unremarkable. No abdominal aortic aneurysm. Lymph nodes: No pathologically enlarged lymph nodes. IMPRESSION: 1. No acute obstructive or inflammatory process identified. Normal appendix. 2. Previous sigmoid colon resection/anastomosis. Colonic diverticulosis. 3. Hepatomegaly. 4. Additional non-emergent findings as above. Electronically signed by: Roseline Rick MD 06/20/2024 04:35 AM CDT [place] Due to temporary technical issues with the PACS/Fluency reporting system, reports are being signed by the in house radiologist without review as a courtesy to ensure prompt reporting. The interpreting r adiologist is fully responsible for the content of the report.
--- NOTE | 2024-06-20 11:04 | RAD REPORT ---
EXAM DESCRIPTION: XR Chest, 1 View CLINICAL HISTORY: The patient is 54 years old and is Female; CHEST PAIN TECHNIQUE: Frontal view of the chest. COMPARISON: No relevant prior studies available. FINDINGS: Lungs: Unremarkable. No consolidation. Pleural space: Unremarkable. No pneumothorax. Heart: Unremarkable. Mediastinum: Unremarkable. Normal mediastinal contour. Bones/joints: No acute findings. IMPRESSION: No acute findings in the chest. Electronically signed by: Praful Reich MD 06/20/2024 02:14 AM CDT 8 Due to temporary technical issues with the PACS/Fluency reporting system, reports are being signed by the in house radiologist without review as a courtesy to ensure prompt reporting. The interpreting r adiologist is fully responsible for the content of the report.
[2024-06-20] MEDS ORDERED: SODIUM CHLORIDE 0.9% 10ML INJ IV PRN (13:34)
[2024-06-20] MEDS: KCL 20 MEQ/100 mL IVPB 20 MEQ/100 ML BAG IV SCH (14:00)
--- OUTSIDE RECORDS SUMMARY | 2024-06-20 14:38 | XMS REPORT | Continuity of Care Document ---
Author Name Unknown Address [address] [facility]. [address] [facility] Address [facility] 1 495 [place] [address] Care Team Providers Care Field Applications Specialist Name Role Phone Heladio Cornejo Primary Care Physician [phone] Heladio Cornejo Attending Clinician Unavailable Jude Mistry Attending Clinician Yudelka Jonas Attending Clinician Unavailable Aleksandra LOZADA, Yesenia Attending Clinician Unavailable Only, Ang Db Test Attending Clinician Unavaildomi Avilez MD, Francois Attending Clinician [phone] FRANCOIS AVILEZ Attending Clinician Unavailable Doctor Unassigned, Kermit Attending Clinician Viviane Taveras Attending Clinician [phone] VIVIANE GRACE Attending Clinician Unavailable Sg Jacome Attending Clinician Sg VALADEZ Attending Clinician Unavailable MELODIE REESE Attending Clinician Unavailable Jude Mistry Admitting Clinician Yudelka Mendoza_TRU_ Admitting Clinician Unavailable Payers Payer Name Policy Type Policy Number Effective Date Expirati on Date Source AETNA - CHOICE (POS II) [id number] 2020 00:00:00 [employer]ET[employer] C1 [id number] 2020 00:00:00 [facility] AETNA C1 [id number] 2020 00:00:00 [facility] AETNA C1 [id number] 2020 00:00:00 [facility] AETNA C1 [id number] 2020 00:00:00 [facility] AETNA C1 [id number] 2020 00:00:00 [facility] AETNA C1 [id number] 2020 00:00:00 [facility] AETNA C1 [id number] 2020 00:00:00 [facility] AETNA C1 [id number] 2020 00:00:00 [facility] AETNA C1 [id number] 2020 00:00:00 [facility] AETNA C1 [id number] 2020 00:00:00 [facility] AET[employer] C1 [id number] 2020 00:00:00 [facility] AET[employer] C1 [id number] 2020 00:00:00 [facility] Problems Condition Name Condition Details Condition Category Status Onset Date Resolution Date Last Treatment Date Treating Clinician Comments Source Obesity Obesity Problem Active 05-03 00:00: 00 [facility] Asthma Asthma Problem Active 11-11 00:00: 00 [facility] Hypercalce petersno Hypercalce peterson Problem Active 2 00:00: 00 [facility] 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 Active 12-18 00:00: 00 [facility] Abdominal pain Abdominal Pain Problem Active 2- 00:00: 00 [facility] Morbid obesity Morbid Obesity Problem Active 05-06 00:00: 00 [facility] Type 2 diabetes mellitus Type 2 Diabetes Mellitus Problem Active 04-08 00:00: 00 [facility] Insomnia Insomnia Problem Active 04-08 00:00: 00 [facility] Body mass index 40+ - severely obese Body Mass Index 40+ - Severely Obese Problem Active 04-08 00:00: 00 [facility] [id number] Arthritis of carpometac arpal (CMC) joint of right thumb Problem Active [facility] [id number] Adult ADHD (attention deficit hyperactiv ity disorder) Problem Active [facility] [id number] History of bowel resection Problem Active [facility] [id number] Hypertrigl yceridemia Problem Active [facility] [id number] Hearing loss of right ear, unspecifie d hearing loss type Problem Active [facility] [id number] Panic disorder [episodic paroxysmal anxiety] Problem Active [facility] [id number] Generalize d anxiety disorder Problem Active [facility] Allergies, Adverse Reactions, Alerts Allergy Name Allergy Type Status Severity Reaction(s) Onset Date Inactive Date Treating Clinician Comments Source Levothyr oxine Sodium Propensi ty to adverse reaction s Active Rash 11-30 00:00: 00 [facility] LATEX DRUG INGREDI Active Anaphylaxis 11-30 00:00: 00 [facility] LEVOTHYR OXINE SODIUM DRUG INGREDI Active Rash 11-30 00:00: 00 [facility] Latex Latex Active itching,swel ling,anaphyl axis [facility] levothyr oxine levothyr oxine Active Rash,itching ,severe irritability [facility] LATEX, NATURAL RUBBER Allergy to substanc e Active Anaphylaxis [facility] Levothyr oxine Allergy to substanc e Active Hives, Itching, Rash [facility] Loratadi ne Allergy to substanc e Active [facility] Synthroi d Allergy to substanc e Active Hives, Itching, Rash [facility] Social History Social Habit Start Date Stop Date Quantity Comments Source Exposure to SARS-CoV-2 (event) Yes [facility] History of Tobacco Use [facility] Sex Assigned At [facility] Smoking Status Start Date Stop Date Source Unknown if ever smoked [facility] Never Smoker [facility] Medications Ordered Medication Name Filled Medication Name Start Date Stop Date Current Medication? Ordering Clinician Indication Dosage Frequency Signature (SIG) Comments Components Source Diclofenac Sodium 1 % Diclofenac Sodium 1 % 03-04 00:00: 00 No QID Diclofenac Sodium 1 % Diclofenac Sodium 1 % Diclofenac Sodium 1 % 03-04 00:00: 00 No QID Diclofenac Sodium 1 % MetFORMIN HCl ER 750 MG MetFORMIN HCl ER 750 MG 11-14 00:00: 00 No 1{table t_with_ evening _meal} QD MetFORMIN HCl ER 750 MG MetFORMIN HCl ER 750 MG MetFORMIN HCl ER 750 MG 11-14 00:00: 00 No 1{table t_with_ evening _meal} QD MetFORMIN HCl ER 750 MG Victoza 18 MG/3ML Victoza 18 MG/3ML 11-14 00:00: 00 02-12 00:00 :00 No QD Victoza 18 MG/3ML Victoza 18 MG/3ML Victoza 18 MG/3ML 11-14 00:00: 00 02-12 00:00 :00 No QD Victoza 18 MG/3ML Ambien Ambien Yes Heladio Cornejo 1 tablet at bedtime as needed [facility] Clonidine HCl Clonidine HCl Yes Heladio Cornejo 1-2 tablets as needed [facility] Multi Vitamin Multi Vitamin Yes Heladio Cornejo not defined [facility] Adderall Adderall Yes Heladio Cornejo 1 tablet as needed Common [facility] Multi Vitamin Multi Vitamin No Multi Vitamin Singulair 10 MG Singulair 10 MG No 1{table t} QD Singulair 10 MG Albuterol Sulfate HFA Albuterol Sulfate HFA No Albuterol Sulfate HFA Ambien 10 MG Ambien 10 MG No 1{table t_at_be dtime_a s_neede d} QD Ambien 10 MG Adderall 20 MG Adderall 20 MG No 1{table t_as_ne eded} BID Adderall 20 MG Clonidine HCl 0.1 MG Clonidine HCl 0.1 MG No QD Clonidine HCl 0.1 MG MetFORMIN HCl ER 500 MG MetFORMIN HCl ER 500 MG No 1{table t_with_ evening _meal} QD MetFORMIN HCl ER 500 MG Multi Vitamin Multi Vitamin No Multi Vitamin Victoza 18 MG/3ML Victoza 18 MG/3ML No Victoza 18 MG/3ML metFORMIN HCl ER 750 MG metFORMIN HCl ER 750 MG No metFORMIN HCl ER 750 MG Singulair 10 MG Singulair 10 MG No 1{table t} QD Singulair 10 MG metFORMIN HCl ER 500 MG metFORMIN HCl ER 500 MG No 1{table t_with_ evening _meal} QD metFORMIN HCl ER 500 MG Adderall 20 MG Adderall 20 MG No 1{table t_as_ne eded} BID Adderall 20 MG Ambien 10 MG Ambien 10 MG No 1{table t_at_be dtime_a s_neede d} QD Ambien 10 MG cloNIDine HCl 0.1 MG cloNIDine HCl 0.1 MG No QD cloNIDine HCl 0.1 MG Ambien 10 MG Ambien 10 MG No 1{table t_at_be dtime_a s_neede d} QD Ambien 10 MG Clonidine HCl 0.1 MG Clonidine HCl 0.1 MG No QD Clonidine HCl 0.1 MG Singulair 10 MG Singulair 10 MG No 1{table t} QD Singulair 10 MG Accu-Chek Softclix Lancets USE DIRECTED. Accu-Chek Softclix Lancets USE DIRECTED. No Accu-Chek Softclix Lancets USE DIRECTED. [facility] Adderall 20 MG Adderall 20 MG No 1{table t_as_ne eded} BID Adderall 20 MG azelastine 137 mcg (0.1 %) nasal spray INSTILL TWO (2) SPRAYS IN EACH NOSTRIL TWICE DAILY. THIS IS AN ANTIHISTAMI NE NASAL SPRAY. azelastine 137 mcg (0.1 %) nasal spray INSTILL TWO (2) SPRAYS IN EACH NOSTRIL TWICE DAILY. THIS IS AN ANTIHISTAMI NE NASAL SPRAY. No azelastine 137 mcg (0.1 %) nasal spray INSTILL TWO (2) SPRAYS IN EACH NOSTRIL TWICE DAILY. THIS IS AN ANTIHISTAM INE NASAL SPRAY. [facility] clonidine HCl 0.1 mg tablet TAKE ONE (1) TO TWO (2) TABLET(S) BY MOUTH ONCE DAILY NEEDED. clonidine HCl 0.1 mg tablet TAKE ONE (1) TO TWO (2) TABLET(S) BY MOUTH ONCE DAILY NEEDED. No clonidine HCl 0.1 mg tablet TAKE ONE (1) TO TWO (2) TABLET(S) BY MOUTH ONCE DAILY NEEDED. [facility] dextroamphe tamine-amph etamine 20 mg tablet TAKE ONE (1) TABLET(S) BY MOUTH TWICE A DAY. dextroamphe tamine-amph etamine 20 mg tablet TAKE ONE (1) TABLET(S) BY MOUTH TWICE A DAY. No dextroamph etamine-am phetamine 20 mg tablet TAKE ONE (1) TABLET(S) BY MOUTH TWICE A DAY. [facility] fluticasone propionate 50 mcg/actuati on nasal spray,suspe nsion USE TWO (2) SPRAYS IN EACH NOSTRIL EVERY DAY. SPRAY UP AND OUT TOWARD EAR. fluticasone propionate 50 mcg/actuati on nasal spray,suspe nsion USE TWO (2) SPRAYS IN EACH NOSTRIL EVERY DAY. SPRAY UP AND OUT TOWARD EAR. No fluticason e propionate 50 mcg/actuat ion nasal spray,susp ension USE TWO (2) SPRAYS IN EACH NOSTRIL EVERY DAY. SPRAY UP AND OUT TOWARD EAR. [facility] Jardiance 25 mg tablet Take 1 tablet every day by oral route in the morning for 90 days. Jardiance 25 mg tablet Take 1 tablet every day by oral route in the morning for 90 days. No 1 Q1D Jardiance 25 mg tablet Take 1 tablet every day by oral route in the morning for 90 days. [facility] metformin ER 500 mg tablet,exte nded release 24 hr Take 1 tablet every day by oral route for 90 days. metformin ER 500 mg tablet,exte nded release 24 hr Take 1 tablet every day by oral route for 90 days. No 1 Q1D metformin ER 500 mg tablet,ext ended release 24 hr Take 1 tablet every day by oral route for 90 days. [facility] OneTouch Delica Plus Lancet 33 gauge USE DIRECTED. OneTouch Delica Plus Lancet 33 gauge USE DIRECTED. No OneTouch Delica Plus Lancet 33 gauge USE DIRECTED. [facility] OneTouch Verio Flex Meter USE DIRECTED. OneTouch Verio Flex Meter USE DIRECTED. No OneTouch Verio Flex Meter USE DIRECTED. [facility] OneTouch Verio test strips CHECK YOUR BLOOD SUGAR THREE TIMES DAILY OneTouch Verio test strips CHECK YOUR BLOOD SUGAR THREE TIMES DAILY No OneTouch Verio test strips CHECK YOUR BLOOD SUGAR THREE TIMES DAILY [facility] zolpidem 10 mg tablet TAKE ONE (1) TABLET(S) BY MOUTH DAILY AT BEDTIME. zolpidem 10 mg tablet TAKE ONE (1) TABLET(S) BY MOUTH DAILY AT BEDTIME. No zolpidem 10 mg tablet TAKE ONE (1) TABLET(S) BY MOUTH DAILY AT BEDTIME. [facility] FreeStyle Chris 3 Sensor device USE DIRECTED AND CHANGE EVERY 14 DAYS FreeStyle Chris 3 Sensor device USE DIRECTED AND CHANGE EVERY 14 DAYS No FreeStyle Chris 3 Sensor device USE DIRECTED AND CHANGE EVERY 14 DAYS [facility] Ozempic 1 mg/dose (4 mg/3 mL) subcutaneou s pen injector INJECT 1 MG SUBCUTANEOU SLY ONCE A WEEK Ozempic 1 mg/dose (4 mg/3 mL) subcutaneou s pen injector INJECT 1 MG SUBCUTANEOU SLY ONCE A WEEK No 1mg Q1W Ozempic 1 mg/dose (4 mg/3 mL) subcutaneo us pen injector INJECT 1 MG SUBCUTANEO USLY ONCE A WEEK [facility] albuterol sulfate 2.5 mg/3 mL (0.083 %) solution for nebulizatio n INHALE ONE (1) VIAL VIA NEBULIZER EVERY FOUR TO SIX HOURS NEEDED FOR ASTHMA FLARE UPS. albuterol sulfate 2.5 mg/3 mL (0.083 %) solution for nebulizatio n INHALE ONE (1) VIAL VIA NEBULIZER EVERY FOUR TO SIX HOURS NEEDED FOR ASTHMA FLARE UPS. No albuterol sulfate 2.5 mg/3 mL (0.083 %) solution for nebulizati on INHALE ONE (1) VIAL VIA NEBULIZER EVERY FOUR TO SIX HOURS NEEDED FOR ASTHMA FLARE UPS. [facility] Ozempic 2 mg/dose (8 mg/3 mL) subcutaneou s pen injector INJECT 2mg once weekly Ozempic 2 mg/dose (8 mg/3 mL) subcutaneou s pen injector INJECT 2mg once weekly No 2mg Q1W Ozempic 2 mg/dose (8 mg/3 mL) subcutaneo us pen injector INJECT 2mg once weekly [facility] trazodone 50 mg tablet TAKE ONE-HALF TO ONE (1/2 TO 1) TABLET(S) BY MOUTH DAILY AT BEDTIME NEEDED. trazodone 50 mg tablet TAKE ONE-HALF TO ONE (1/2 TO 1) TABLET(S) BY MOUTH DAILY AT BEDTIME NEEDED. No trazodone 50 mg tablet TAKE ONE-HALF TO ONE (1/2 TO 1) TABLET(S) BY MOUTH DAILY AT BEDTIME NEEDED. [facility] Vios Aerosol Delivery System USE DIRECTED. Vios Aerosol Delivery System USE DIRECTED. No Vios Aerosol Delivery System USE DIRECTED. [facility] albuterol sulfate HFA 90 mcg/actuati on aerosol inhaler INHALE TWO (2) PUFF(S) BY MOUTH EVERY FOUR TO SIX HOURS NEEDED. albuterol sulfate HFA 90 mcg/actuati on aerosol inhaler INHALE TWO (2) PUFF(S) BY MOUTH EVERY FOUR TO SIX HOURS NEEDED. No albuterol sulfate HFA 90 mcg/actuat ion aerosol inhaler INHALE TWO (2) PUFF(S) BY MOUTH EVERY FOUR TO SIX HOURS NEEDED. [facility] Breo Ellipta 100 mcg-25 mcg/dose powder for inhalation INHALE ONE (1) PUFF(S) BY MOUTH ONCE A DAY AT THE SAME TIME EACH DAY. Breo Ellipta 100 mcg-25 mcg/dose powder for inhalation INHALE ONE (1) PUFF(S) BY MOUTH ONCE A DAY AT THE SAME TIME EACH DAY. No Breo Ellipta 100 mcg-25 mcg/dose powder for inhalation INHALE ONE (1) PUFF(S) BY MOUTH ONCE A DAY AT THE SAME TIME EACH DAY. [facility] estradiol 0.01% (0.1 mg/gram) vaginal cream INSERT ONE (1) GRAM VAGINALLY TWICE WEEKLY AT BEDTIME. estradiol 0.01% (0.1 mg/gram) vaginal cream INSERT ONE (1) GRAM VAGINALLY TWICE WEEKLY AT BEDTIME. No estradiol 0.01% (0.1 mg/gram) vaginal cream INSERT ONE (1) GRAM VAGINALLY TWICE WEEKLY AT BEDTIME. [facility] estradiol 0.075 mg/24 hr semiweekly transdermal patch APPLY ONE (1) PATCH TO SKIN TWO TIMES A WEEK. estradiol 0.075 mg/24 hr semiweekly transdermal patch APPLY ONE (1) PATCH TO SKIN TWO TIMES A WEEK. No estradiol 0.075 mg/24 hr semiweekly transderma l patch APPLY ONE (1) PATCH TO SKIN TWO TIMES A WEEK. [facility] Mounjaro 10 mg/0.5 mL subcutaneou s pen injector Inject 10 mg every week by subcutaneou s route for 30 days. Mounjaro 10 mg/0.5 mL subcutaneou s pen injector Inject 10 mg every week by subcutaneou s route for 30 days. No 10mg Q1W Mounjaro 10 mg/0.5 mL subcutaneo us pen injector Inject 10 mg every week by subcutaneo us route for 30 days. [facility] Mounjaro 2.5 mg/0.5 mL subcutaneou s pen injector Inject 2.5 mg every week by subcutaneou s route for 30 days. Mounjaro 2.5 mg/0.5 mL subcutaneou s pen injector Inject 2.5 mg every week by subcutaneou s route for 30 days. No 2.5mg Q1W Mounjaro 2.5 mg/0.5 mL subcutaneo us pen injector Inject 2.5 mg every week by subcutaneo us route for 30 days. [facility] Mounjaro 5 mg/0.5 mL subcutaneou s pen injector Inject 5 mg every week by subcutaneou s route for 30 days. Mounjaro 5 mg/0.5 mL subcutaneou s pen injector Inject 5 mg every week by subcutaneou s route for 30 days. No 5mg Q1W Mounjaro 5 mg/0.5 mL subcutaneo us pen injector Inject 5 mg every week by subcutaneo us route for 30 days. [facility] Mounjaro 7.5 mg/0.5 mL subcutaneou s pen injector Inject 7.5 mg every week by subcutaneou s route for 30 days. Mounjaro 7.5 mg/0.5 mL subcutaneou s pen injector Inject 7.5 mg every week by subcutaneou s route for 30 days. No 7.5mg Q1W Mounjaro 7.5 mg/0.5 mL subcutaneo us pen injector Inject 7.5 mg every week by subcutaneo us route for 30 days. [facility] nitrofurant oin monohydrate /macrocryst als 100 mg capsule TAKE ONE (1) CAPSULE(S) BY MOUTH EVERY TWELVE HOURS FOR 5 DAYS. nitrofurant oin monohydrate /macrocryst als 100 mg capsule TAKE ONE (1) CAPSULE(S) BY MOUTH EVERY TWELVE HOURS FOR 5 DAYS. No nitrofuran toin monohydrat e/macrocry stals 100 mg capsule TAKE ONE (1) CAPSULE(S) BY MOUTH EVERY TWELVE HOURS FOR 5 DAYS. [facility] Vital Signs Vital Name Observation Time Observation Value Comments S ource BP Systolic 2024-05-03 00:00:00 124 mm[Hg] [facility] Body Weight 2024-05-03 00:00:00 200 [lb_av] [facility] Height 2024-05-03 00:00:00 64 [in_i] [facility] BMI (Body Mass Index) 2024-05-03 00:00:00 34.3 kg/m2 [facility] BP Diastolic 2024-05-03 00:00:00 68 mm[Hg] [facility] Height 2023-11-11 00:00:00 64 [in_i] [facility] BMI (Body Mass Index) 2023-11-11 00:00:00 36 kg[facility] Weight 2023-11-11 00:00:00 210 [lb_av] [facility] BP Diastolic 2023-11-11 00:00:00 66 mm[Hg] [facility] BP Systolic 2023-11-11 00:00:00 112 mm[Hg] [facility] Height 2023-03-15 00:00:00 64 [in_i] [facility] BP Diastolic 2022-12-14 00:00:00 87 mm[Hg] [facility] Height 2022-12-14 00:00:00 64 [in_i] [facility] BMI (Body Mass Index) 2022-12-14 00:00:00 42.4 kg/m2 [facility] BP Systolic 2022-12-14 00:00:00 147 mm[Hg] [facility] Body Weight 2022-12-14 00:00:00 246.8 [lb_av] [facility] Height 2022-09-11 00:00:00 64 [in_i] [facility] BMI (Body Mass Index) 2022-09-11 00:00:00 41.9 kg/m2 [facility] Weight 2022-09-11 00:00:00 244 [lb_av] [facility] Body Weight 2022-05-06 00:00:00 263 [lb_av] [facility] BP Diastolic 2022-05-06 00:00:00 80 mm[Hg] [facility] Height 2022-05-06 00:00:00 64 [in_i] [facility] BMI (Body Mass Index) 2022-05-06 00:00:00 45.1 kg/m2 [facility] BP Systolic 2022-05-06 00:00:00 142 mm[Hg] [facility] BP Diastolic 2022-04-08 00:00:00 100 mm[Hg] [facility] Height 2022-04-08 00:00:00 64 [in_i] [facility] BMI (Body Mass Index) 2022-04-08 00:00:00 46.2 kg/m2 [facility] BP Systolic 2022-04-08 00:00:00 164 mm[Hg] [facility] Body Weight 2022-04-08 00:00:00 269.4 [lb_av] [facility] height 2021-06-03 16:30:00 64 [in_i] [facility] weight 2021-06-03 16:30:00 263.3 [lb_av] Co mmon [facility] temperature 2021-06-03 16:30:00 98.2 [degF] Com mon [facility] bmi 2021-06-03 16:30:00 45.19 kg/m2 Comm on [facility] oximetry 2021-06-03 16:30:00 98 % Commo n [facility] respiratory rate 2021-06-03 16:30:00 17 /min [facility] blood pressure systolic 2021-06-03 16:30:00 132 mm[Hg] Common [facility] blood pressure diastolic 2021-06-03 16:30:00 87 mm[Hg] [facility] height 2021-03-04 10:30:00 64 [in_i] Commo n [facility] weight 2021-03-04 10:30:00 261 [lb_av] Comm on [facility] temperature 2021-03-04 10:30:00 97.3 [degF] Com mon [facility] bmi 2021-03-04 10:30:00 44.80 kg/m2 Comm on [facility] blood pressure systolic 2021-03-04 10:30:00 138 mm[Hg] [facility] blood pressure diastolic 2021-03-04 10:30:00 92 mm[Hg] Common [facility] height 2021-02-13 10:30:00 64 [in_i] Commo n [facility] weight 2021-02-13 10:30:00 261.8 [lb_av] Co [facility] temperature 2021-02-13 10:30:00 97.2 [degF] Com mon [facility] bmi 2021-02-13 10:30:00 44.93 kg/m2 Comm on [facility] oximetry 2021-02-13 10:30:00 95 % Commo n [facility] respiratory rate 2021-02-13 10:30:00 18 /min Common [facility] blood pressure systolic 2021-02-13 10:30:00 134 mm[Hg] [facility] blood pressure diastolic 2021-02-13 10:30:00 75 mm[Hg] Common [facility] height 2021-02-13 15:00:00 64 [in_i] Commo n [facility] weight 2021-02-13 15:00:00 261 [lb_av] Comm on [facility] bmi 2021-02-13 15:00:00 44.80 kg/m2 Comm on [facility] blood pressure systolic 2021-02-13 15:00:00 133 mm[Hg] [facility] blood pressure diastolic 2021-02-13 15:00:00 70 mm[Hg] [facility] height 2020-12-24 15:00:00 64 [in_i] Commo n [facility] weight 2020-12-24 15:00:00 262.5 [lb_av] Co mmon [facility] bmi 2020-12-24 15:00:00 45.05 kg/m2 Comm on [facility] blood pressure systolic 2020-12-24 15:00:00 126 mm[Hg] [facility] diastolic 2020-12-24 15:00:00 84 mm[Hg] [facility] Systolic blood pressure 2020-12-01 04:43:00 151 mm[Hg] [facility] Diastolic blood pressure 2020-12-01 04:43:00 81 mm[Hg] [place] [facility] Heart rate 2020-12-01 04:43:00 85 /min [facility] Respiratory rate 2020-12-01 04:31:00 15 /min [facility] Oxygen saturation in Arterial blood by Pulse oximetry 2020-12-01 04:31:00 97 /min [place] [facility] Body temperature 2020-12-01 01:52:00 36.89 Babita [facility] Body weight 2020-12-01 01:52:00 120.203 kg [facility] height 2020-11-14 14:00:00 64 [in_i] Commo n [facility] weight 2020-11-14 14:00:00 266.3 [lb_av] Co mmon [facility] temperature 2020-11-14 14:00:00 98.1 [degF] Com mon [facility] bmi 2020-11-14 14:00:00 45.71 kg/m2 Comm on [facility] oximetry 2020-11-14 14:00:00 96 % Commo n [facility] respiratory rate 2020-11-14 14:00:00 19 /min [facility] blood pressure systolic 2020-11-14 14:00:00 136 mm[Hg] [facility] blood pressure diastolic 2020-11-14 14:00:00 70 mm[Hg] [facility] Procedures Procedure Date / Time Performed Performing Clinician Source home sleep study 2022-05-06 00:00:00 [facility] ASSIGNMENT OF BENEFITS 2021-11-20 17:52:11 Docto r Unassigned, Kermit [facility] MAGNESIUM 2020-12-01 03:02:00 [facility] 2020-12-01 03:02:00 [facility] COMP. METABOLIC PANEL ([id number]) 2020-12-01 03:02:00 Sg Valadez [facility] CBC WITH DIFF 2020-12-01 03:02:00 Sg Valadez [facility] URINALYSIS 2020-12-01 03:02[facility] 2020-12-01 03:02:00 Sg Valadez [facility] XR CHEST 1 VW 2020-12-01 02:52:32 Sg Valadez [facility] NOTICE OF PRIVACY PRACTICES 2020-12-01 01:46:38 Doctor Unassigned, Kermit [facility] CONSENT/REFUSAL FOR DIAGNOSIS AND TREATMENT 2020-12-01 01:46:12 Doctor Unassigned, Kermit [facility] Unlisted Px [facility] Practice Procedure on Gallbladder [facility] Encounters Start Date/Time End Date/Time Encounter Type Admission Type Attending Clinicians Care Facility Care Department Encounter ID Source 2021-11-26 14:26:23 Outpatient Cornejo, [facility] [id number] [facility] 2021-11-26 13:31:32 Outpatient Cornejo, [facility] [id number] [facility] 2021-11-26 12:57:59 [facility] [facility] [id number] [facility] 2021-11-26 12:32:37 Outpatient [place]ne[place], [facility] [id number] [facility] 2021-11-26 12:31:55 Outpatient Cornejo, [facility] ST[facility] STL[facility] [id number] [facility] 2021-11-26 12:28:28 Outpatient Cornejo, [facility] ST[facility] [id number] [facility] 2021-11-26 12:21:41 Outpatient Cornejo, [facility] [id number] [facility] 2021-11-26 12:08:23 [facility] [id number] [facility] 2021-11-26 12:08:17 [facility] [id number] [facility] 2021-11-26 11:53:49 [facility] [id number] [facility] 2021-11-26 11:46:16 Outpatient [facility] [id number] [facility] 2024-05-03 00:00:00 2024-05-03 00:00:00 Kahlil Cardenas MD: [id number], [address], [place] [address] , Ph. [facility] - VM_TRU_[place] [id number] [facility] 2024-03-20 11:30:00 2024-03-20 11:30:00 Outpatient Jude Marti [facility] [id number] 60 [facility] 2023-11-11 00:00:00 2023-11-11 00:00:00 Outpatient Ronald_JUNAID [facility] [id number] [facility] 2023-11-11 00:00:00 2023-11-11 00:00:00 Kahlil Cardenas MD: [id number], [address], [place] [address] , Ph. [facility] [place] - VM_TRU_[place] [id number] [facility] 2023-11-08 00:00:00 2023-11-08 00:00:00 Outpatient Ronald_JUNAID [facility] [id number] [facility] 2023-06-17 00:00:00 2023-06-17 00:00:00 Outpatient Daniel_T_HO U_MD VFP VFP [id number] [facility] 2023-06-17 00:00:00 2023-06-17 00:00:00 Outpatient Daniel_T_HO U_MD VFP VFP [id number] [facility] 2023-06-17 00:00:00 2023-06-17 00:00:00 Kahlil Cardenas MD: [id number], [address], [place] [address] , Ph. VFP [facility] - [place] - VM_HOU_[place] [id number] [facility] 2023-03-15 00:00:00 2023-03-15 00:00:00 Kahlil Cardenas MD: [id number], [address], [place] [address] , Ph. VFP [place] [facility] - [place] - VM_HOU_[place] [id number] [facility] 2023-01-12 00:00:00 2023-01-12 00:00:00 Outpatient Daniel_T VFP VFP [id number] [facility] 2023-01-12 00:00:00 2023-01-12 00:00:00 Outpatient Daniel_T VFP VFP [id number] [facility] 2022-12-14 00:00:00 2022-12-14 00:00:00 Outpatient Daniel_T VFP VFP [id number] [facility] 2022-12-14 00:00:00 2022-12-14 00:00:00 Outpatient Daniel_T VFP VFP [id number] [facility] 2022-12-14 00:00:00 2022-12-14 00:00:00 Kahlil Cardenas MD: [id number], [address], [place] [address] , Ph. VFP [facility] - [place] - VM_HOU_[place] [id number] [facility] 2022-12-11 00:00:00 2022-12-11 00:00:00 Outpatient Daniel_T VFP VFP [id number] [facility] 2022-09-11 00:00:00 2022-09-11 00:00:00 Outpatient Daniel_T VFP VFP [id number] [facility] 2022-09-11 00:00:00 2022-09-11 00:00:00 Kahlil Cardenas MD: [id number], [address], [place] [address] , Ph. P [place] - [facility] - [place] - VM_TRU_[place] [id number] [facility] 2022-09-07 00:00:00 2022-09-07 00:00:00 Outpatient Daniel_T VFP VFP [id number] [facility] 2022-06-09 00:00:00 2022-06-09 00:00:00 Outpatient Daniel_T VFP VFP [id number] [facility] 2022-05-20 04:42:00 2022-05-20 04:42:00 Outpatient Daniel_T VFP VFP [id number] [facility] 2022-05-19 11:31:00 2022-05-19 11:31:00 Outpatient Daniel_T VFP VFP [id number] [facility] 2022-05-11 09:04:00 2022-05-11 09:04:00 Outpatient Daniel_T VFP VFP [id number] [facility] 2022-05-06 04:39:00 2022-05-06 04:39:00 Outpatient Daniel_T VFP VFP [id number] [facility] 2022-05-06 00:00:00 2022-05-06 00:00:00 Kahlil Cardenas MD: [id number], [address], [place] [address] , Ph. VFP [place] - [facility] - VM_HOU_[place] [id number] [facility] 2022-05-02 12:56:00 2022-05-02 12:56:00 Outpatient Daniel_T VFP VFP [id number] [facility] 2022-04-08 05:19:00 2022-04-08 05:19:00 Outpatient Daniel_T VFP VFP [id number] [facility] 2022-04-08 00:00:00 2022-04-08 00:00:00 Kahlil Cardenas MD: [id number] [facility], [address], [place] [address] , Ph. VFP [place] - [facility] - VM_HOU_[place] [id number] [facility] 2022-04-07 09:15:00 2022-04-07 09:15:00 Outpatient Daniel_T VFP VFP [id number] [facility] 2022-04-06 08:26:00 2022-04-06 08:26:00 Outpatient Daniel_T VFP VFP [id number] [facility] 2022-04-03 06:05:00 2022-04-03 06:05:00 Outpatient Daniel_T VFP VFP [id number] [facility] 2022-03-31 11:29:00 2022-03-31 11:29:00 Outpatient Daniel_T VFP VFP [id number] [facility] 2021-11-21 00:00:00 2021-11-21 00:00:00 Telephone [place] [facility] 1.2.840.114 350.1.13.10 4.2.7.2.686 [id number] [facility] 2021-11-20 15:00:00 2021-11-20 15:15:00 Laboratory Only Only, Ang Db Test Francois Avilez [facility] 1.2.840.114 350.1.13.10 4.2.7.2.686 [id number] [facility] 2021-11-20 15:00:00 2021-11-20 15:00:00 Outpatient FRANCOIS HAN [facility] [id number] [facility] 2021-11-20 00:00:00 2021-11-20 00:00:00 Orders Only Doctor Unassigned, Kermit [facility] 1.2.840.114 350.1.13.10 4.2.7.2.686 [id number] [facility] 2021-11-19 00:00:00 2021-11-19 00:00:00 Telephone [place] [facility] 1.2.840.114 350.1.13.10 4.2.7.2.686 [id number] [facility] 2021-11-18 11:45:00 2021-11-18 12:00:00 Laboratory Only Only, Ang Db Test Viviane Grace [facility] 1.2.840.114 350.1.13.10 4.2.7.2.686 [id number] [facility] 2021-11-18 11:45:00 2021-11-18 11:45:00 Outpatient VIVIANE ALEJANDRA [facility] [id number] [facility] 2021-09-17 00:00:00 2021-09-17 00:00:00 (TEL) [facility] [id number] [facility] 2021-06-03 00:00:00 2021-06-03 00:00:00 OFFICE VISIT ESTAB PT LEVEL 4 [facility] [id number] [facility] 2021-03-04 00:00:00 2021-03-04 00:00:00 OFFICE VISIT EST PT LEVEL 3 [facility] [id number] [facility] 2021-02-13 00:00:00 2021-02-13 00:00:00 OFFICE VISIT ESTAB PT LEVEL 4 [facility] [id number] [facility] 2021-02-13 00:00:00 2021-02-13 00:00:00 OFFICE VISIT EST PT LEVEL 3 [facility] [id number] [facility] 2021-01-13 00:00:00 2021-01-13 00:00:00 (TEL) [facility] [id number] [facility] 2021-01-09 00:00:00 2021-01-09 00:00:00 (TEL) [facility] [id number] [facility] 2020-12-25 00:00:00 2020-12-25 00:00:00 (TEL) [facility] [id number] [facility] 2020-12-24 00:00:00 2020-12-24 00:00:00 OFFICE VISIT NEW PT LEVEL 4 [facility] [id number] [facility] 2020-12-19 00:00:00 2020-12-19 00:00:00 (TEL) [facility] [id number] [facility] 2020-12-02 00:00:00 2020-12-02 00:00:00 (TEL) [facility] [id number] [facility] 2020-11-30 19:57:00 2020-11-30 23:33:00 Emergency Sg Valadez [facility] 1.2.840.114 350.1.13.10 4.2.7.2.686 [id number] [facility] 2020-11-30 19:57:00 2020-11-30 19:57:00 Emergency X Sg VALADEZ [facility] ERT [id number] [facility] 2020-11-14 00:00:00 2020-11-14 00:00:00 OFFICE VISIT ESTAB PT LEVEL 4 [facility] [id number] [facility] 2020-10-15 09:10:00 2020-10-15 23:59:00 Outpatient M[facility]ODIE REESE [facility] 2020-08-12 00:00:00 2020-08-12 00:00:00 Outpatient [facility] [id number] [facility] 2020-07-16 15:30:00 2020-07-16 15:30:00 [facility] [id number] [facility] Results Test Description Test Time Test Comments Results Resul t Comments Source - DUP AB/PEL/SC COMP 2024-03-20 14:36:00 [facility] 1970 Sex: F * Name: TIMOTHY TROTTER [facility] : 1970 Age/S: 53 / F [address] Unit #: [id number] Loc: [place] [address] Phys: Jude Mistry MD Acct: [id number] Dis Date: Status: REG CLI PHONE #: [phone] Exam Date: 03/20/2024 1244 FAX #: Reason: IREEGULAR MENSES EXAMS: CPT: [id number] DUP AB/PEL/SC COMP 59205 Location Code: S17 EXAMINATION: - DUP AB/PEL/SC COMP, - US TRANSVAGINAL NON OB, - US PELVIC COMPLETE CLINICAL INDICATION: Female, 53 years old with IRREGULAR MENSES. LMP March 16, 2024. History of left ovary removal in 2017. COMPARISON: None TECHNIQUE: Transvaginal and transabdominal imaging of the pelvis is performed utilizing grayscale, color Doppler, and spectral waveform analysis. FINDINGS: Uterus: The uterus measures 8 x 5 x 6cm. The endometrium measures 3mm, within normal limits of thickness. There are two isoechoic, ill-defined heterogeneous structures within the uterus measuring 2.5 and 2.1 cm, respectively that likely represent fibroids. Ovaries: The right ovary measures 2.6 x 1.6 x 1.8 cm. The left ovary is surgically absent. Color Doppler flow is demonstrated to the right ovary. 1.9 cm anechoic lesion with posterior acoustic enhancement in the right ovary suggestive of a cyst. Pelvis: There is no evidence of free fluid in the pelvis. IMPRESSION: Suspected fibroid uterus. Surgical absence of the left ovary. Color Doppler flow is demonstrated to the right ovary. at 1436 Reported and signed by: Norris Calderon M.D. CC: Jude Singh MD Technologist: L[facility]angel [facility] Date/Time: 03/20/2024 (1436) [email or web address] PAGE 1 Signed Report Name: TIMOTHY TROTTER [place] : 1970 Age/S: 53 / F [address] Unit #: [id number] Loc: [place] [address] Phys: Jude Mistry MD Acct: [id number] Dis Date: Status: REG CLI PHONE #: [phone] Exam Date: 03/20/2024 1244 FAX #: Reason: IREEGULAR MENSES EXAMS: CPT: [id number] DUP AB/PEL/SC COMP 29633 (Continued) Orig Print D/T: S: 03/20/2024 (1439) Probe: PAGE 2 Signed Report - US TRANSVAGINAL NON OB 2024-03-20 14:36:00 [facility] : 1970 Sex: F * Name: TIMOTHY TROTTER [facility] : 1970 Age/S: 53 / F [address] Unit #: [id number] Loc: [place] [address] Phys: Jude Mistry MD Acct: [id number] Dis Date: Status: REG CLI PHONE #: [phone] Exam Date: 03/20/2024 1243 FAX #: Reason: IRREGULAR MENSTRUAL CYCLE EXAMS: CPT: [id number] [place] [address] Location Code: S17 EXAMINATION: - DUP AB/PEL/SC COMP, - US TRANSVAGINAL NON OB, - US PELVIC COMPLETE CLINICAL INDICATION: Female, 53 years old with IRREGULAR MENSES. LMP March 16, 2024. History of left ovary removal in 2017. COMPARISON: None TECHNIQUE: Transvaginal and transabdominal imaging of the pelvis is performed utilizing grayscale, color Doppler, and spectral waveform analysis. FINDINGS: Uterus: The uterus measures 8 x 5 x 6cm. The endometrium measures 3mm, within normal limits of thickness. There are two isoechoic, ill-defined heterogeneous structures within the uterus measuring 2.5 and 2.1 cm, respectively that likely represent fibroids. Ovaries: The right ovary measures 2.6 x 1.6 x 1.8 cm. The left ovary is surgically absent. Color Doppler flow is demonstrated to the right ovary. 1.9 cm anechoic lesion with posterior acoustic enhancement in the right ovary suggestive of a cyst. Pelvis: There is no evidence of free fluid in the pelvis. IMPRESSION: Suspected fibroid uterus. Surgical absence of the left ovary. Color Doppler flow is demonstrated to the right ovary. at 1436 Reported and signed by: Norris Calderon M.D. CC: Jude Singh MD Technologist: Lianet Rangel Trnscb Date/Time: 03/20/2024 (1435) [email or web address] PAGE 1 Signed Report Name: TIMOTHY TROTTER [place] : 1970 Age/S: 53 / F [address] [facility] Unit #: [id number] Loc: [place] [address] Phys: Jude Mistry MD Acct: [id number] Dis Date: Status: REG CLI PHONE #: [phone] Exam Date: 03/20/2024 1243 FAX #: Reason: IRREGULAR MENSTRUAL CYCLE EXAMS: CPT: [id number] [place] [address] (Continued) Orig Print D/T: S: 03/20/2024 (143) Probe: [id number] PAGE 2 Signed Report - US PELVIC COMPLETE 2024-03-20 14:36:00 [facility] : 1970 Sex: F * Name: TIMOTHY TROTTER [place] : 1970 Age/S: 53 / F [address] [facility] Unit #: [id number] Loc: [place] [address] Phys: Jude Mistry MD Acct: [id number] Dis Date: Status: REG CLI PHONE #: [phone] Exam Date: 03/20/2024 1243 FAX #: Reason: IRREGULAR MENSTRUAL CYCLE EXAMS: CPT: [id number] US PELVIC COMPLETE [address]1938 Location Code: S17 EXAMINATION: - DUP AB/PEL/SC COMP, - US TRANSVAGINAL NON OB, - US PELVIC COMPLETE CLINICAL INDICATION: Female, 53 years old with IRREGULAR MENSES. LMP March 16, 2024. History of left ovary removal in 2017. COMPARISON: None TECHNIQUE: Transvaginal and transabdominal imaging of the pelvis is performed utilizing grayscale, color Doppler, and spectral waveform analysis. FINDINGS: Uterus: The uterus measures 8 x 5 x 6cm. The endometrium measures 3mm, within normal limits of thickness. There are two isoechoic, ill-defined heterogeneous structures within the uterus measuring 2.5 and 2.1 cm, respectively that likely represent fibroids. Ovaries: The right ovary measures 2.6 x 1.6 x 1.8 cm. The left ovary is surgically absent. Color Doppler flow is demonstrated to the right ovary. 1.9 cm anechoic lesion with posterior acoustic enhancement in the right ovary suggestive of a cyst. Pelvis: There is no evidence of free fluid in the pelvis. IMPRESSION: Suspected fibroid uterus. Surgical absence of the left ovary. Color Doppler flow is demonstrated to the right ovary. at 1436 Reported and signed by: Norris Calderon M.D. CC: Jude Singh MD Technologist: Lianet Rangel Trnksb Date/Time: 03/20/2024 (1436) [email or web address] PAGE 1 Signed Report Name: TIMOTHY TROTTER [place] : 1970 Age/S: 53 / F [address] Unit #: [id number] Loc: [place] [address] Phys: Jude Mistry MD Acct: [id number] Dis Date: Status: REG CLI PHONE #: [phone] Exam Date: 03/20/2024 1240 FAX #: Reason: IRREGULAR MENSTRUAL CYCLE EXAMS: CPT: [id number] US PELVIC COMPLETE 48169 (Continued) Orig Print D/T: S: 03/20/2024 (1439) Probe: PAGE 2 Signed Report [facility]/volume] in Capillary [id number] 13:56:36* Test Item Value Reference Range Interpretation Comme nts Blood Glucose: mg/dl (test c ode = Blood Glucose: mg/dl) 129 [facility]Gl[facility] [Mass/volume] in Capillary vhvdu1412-35-01 14:51:08* Test Item Value Reference Range Interpretation Comme nts Blood Glucose: mg/dl (test c ode = Blood Glucose: mg/dl) 66 [facility], [id number] 00:00:00* Test Item Value Reference Range Interpretation Comme nts glutamic acid decarboxylase 65 Ab (test code = glutamic acid decarboxylase 65 Ab) <5 <5 ia-2 antibody (test code = i a-2 antibody) <5.4 <5.4 insulin autoantibody (test c ode = insulin autoantibody) 34.9 U/mL <0.4 H [facility] peptide [Mass/volume] in Serum or [id number] 00:00:00* Test Item Value Reference Range Interpretation Comme nts C-peptide (test code = C-peptide) 2.26 NG/mL 0.80-3.85 [facility] W Auto Differential panel - [id number] 00:00:00 * Test Item Value Reference Range Interpretation Comme nts WBC (test code = WBC) 7.89 x10*3/?L 4.00-11.00 RBC (test code = RBC) 4.63 10*12/L 3.93-5.22 hemoglobin (test code = hemoglobin) 14.20 g/dL 11.20-15.70 hematocrit (test code = hematocrit) 42.7 % 34.1-44.9 MCV (test code = MCV) 92.2 fL 80.0-100.0 MCH (test code = MCH) 30.7 pg 25.6-32.2 MCHC (test code = MCHC) 33.3 g/dL 32.2-35.5 RDW-SD (test code = RDW-SD) 41.1 fL 36.4-46.3 platelet count (test code = platelet count) 301.0 k/uL 150.0-400.0 MPV (test code = MPV) 9.6 fL 7.5-11.5 neut% (test code = neut%) 55.3 % 34.0-71.1 lymph% (test code = lymph%) 35.5 % 19.3-51.7 mon% (test code = mon%) 5.7 % 4.7-12.5 eos% (test code = eos%) 1.8 % 0.7-5.8 baso% (test code = baso%) 1.3 % 0.1-1.2 H neut# (test code = neut#) 4.4 x10*3/?L 1.6-6.1 lymph# (test code = lymph#) 2.8 x10*3/?L 1.2-3.7 mon# (test code = mon#) 0.5 x10*3/?L 0.2-0.9 eos# (test code = eos#) 0.14 x10*3/?L 0.04-0.36 baso# (test code = baso#) 0.10 x10*3/?L 0.01-0.08 H [facility] HospitalComprehensive [facility] 2000 panel - Serum or Plasma 2022-04-09 00:00:00* Test Item Value Reference Range Interpretation Comme nts ALT (test code = ALT) 32 U/L 0-55 AST (test code = AST) 21 U/L 5-34 BUN (test code = BUN) 7.2 mg/dL 9.8-25.0 L alk phos (test code = alk phos) 81 unit/L 40-150 glucose (test code = glucose) 207 mg/dL 70-99 H albumin (test code = albumin) 4.0 g/dL 3.4-5.1 creatinine (test code = creatinine) 0.79 mg/dL 0.57-1.11 eGFR non- (t est code = eGFR non-) >60 total bilirubin (test code = total bilirubin) 0.4 mg/dL 0.2-1.2 eGFR - (claude t code = eGFR - ) >60 sodium (test code = sodium) 136 mEq/L 135-145 potassium (test code = potassium) 4.0 mEq/L 3.5-5.3 chloride (test code = chloride) 100 mmol/L 98-110 total protein (test code = t otal protein) 7.3 g/dL 6.1-8.2 calcium (test code = calcium) 10.1 mg/dL 8.4-10.4 CO2 (test code = CO2) 28.6 mmol/L 20.0-32.0 anion gap (test code = anion gap) 7 calc [facility] HospitalLipid 1996 panel - Serum or [id number] 00:00:00* Test Item Value Reference Range Interpretation Comme nts HDL (test code = HDL) 46 mg/dL L triglyceride (test code = triglyceride) 77 mg/dL <150 VLDL (calculated) (test code = VLDL (calculated)) 15 mg/dL cholesterol/HDL ratio (test code = cholesterol/HDL ratio) 3.9 mg/dL non-HDL cholesterol (calcula amber) (test code = non-HDL cholesterol (calculated)) 133 mg/dL <160 cholesterol (test code = cholesterol) 179 mg/dL <200 Cholesterol in LDL [Mass/vol ume] in Serum or Plasma (test code = 2089-1) 118 mg/dL <130 [facility] HospitalThyroxine (T4) free [Mass/volume] in Serum or Plasma 2022-04-09 00:00:00* Test Item Value Reference Range Interpretation Comme [facility] T4 free (test code = T4 free) 0.91 NG/dL 0.70-1.48 [facility] HospitalThyrotropin [Units/volume] in Serum or [id number] 00:00:00* Test Item Value Reference Range Interpretation Comme [facility] TSH (test code = TSH) 3.441 uIU/mL 0.350-4.940 [facility] HospitalMicroalbumin/Creatinine [Mass Ratio] in [id number] 00:00:00* Test Item Value Reference Range Interpretation Comme nts microalbumin random urine (test code = microalbumin random urine) see comment creatinine random urine (test code = creatinine random urine) 107.8 mg/dL 20.0-320.0 microalbumin/creatinine (random urine) ratio calculated (test code = microalbumin/creatinine (random urine) ratio calculated) unable to calculate [facility] HospitalHemoglobin A1c measurement device [id number] 14:45:59* Test Item Value Reference Range Interpretation Comme [facility] Hemoglobin A1C Fingerstick: (test code = Hemoglobin A1C Fingerstick:) 8.7 [facility] HospitalHemoglobin A1c measurement device [id number] 14:45:59* Test Item Value Reference Range Interpretation Comme [facility] Hemoglobin A1C Fingerstick: (test code = Hemoglobin A1C Fingerstick:) 8.7 [facility] HospitalGlucose [Mass/volume] in Capillary [id number] 14:40:22* Test Item Value Reference Range Interpretation Comme [facility] Blood Glucose: mg/dl (test c ode = Blood Glucose: mg/dl) 205 [facility] HospitalGlucose [Mass/volume] in Capillary [id number] 14:40:22* Test Item Value Reference Range Interpretation Comme nts Blood Glucose: mg/dl (test c ode = Blood Glucose: mg/dl) 205 [facility] HospitalCOMP. METABOLIC PANEL (53565)2020-12-01 04:10:00* Test Item Value Reference Range Interpretation Comme nts NA (test code = 1156819630) 138 mmol/L 135-145 K (test code = 8954360870) 3.8 mmol/L 3.5-5 CL (test code = 7414076726) 100 mmol/L 98-108 CO2 TOTAL (test code = 2249075632) 28 mmol/L 23-31 AGAP (test code = 0245507575) 2-16 BUN (test code = 0922288314) 11 mg/dL 7-23 GLUCOSE (test code = 4408102004) 122 mg/dL 70-110 H CREATININE (test code = 2875576512) 0.61 mg/dL 0.5-1.04 TOTAL BILI (test code = 1040864551) 0.3 mg/dL 0.1-1.1 CALCIUM (test code = 8029807539) 9.6 mg/dL 8.6-10.6 T PROTEIN (test code = 7352421723) 7.3 g/dL 6.3-8.2 ALBUMIN (test code = 8343807249) 4.3 g/dL 3.5-5 ALK PHOS (test code = 3466656708) 88 U/L 34-122 ALTv (test code = 1742-6) 21 U/L 5-35 AST(SGOT) (test code = 9296105157) 19 U/L 13-40 eGFR Calculation (Non-) (test code = 9104477604) mL/min/1.73m2 eGFR Calculation () (test code = 3955346244) mL/min/1.73m2 AWA (test code = AWA) Association of Glomerular Filtration Rate (GFR) and Staging of Kidney Disease* + --+ --+ ------+| GFR (mL/min/1.73 m2) ?| With Kidney Damage ?| ?Without Kidney Damage+ --------+ --------+ +| ?>90 ?| ?Stage one ?| ? Normal ?+ ---+ ---+ -------+| ?60-89 ?| ?Stage two ?| ? Decreased GFR ? + --+ --+ ------+| ?30-59 ?| ?Stage three ?| ? Stage three ? + --+ --+ ------+| ?15-29 ?| ?Stage four ? | ? Stage four ?+ ---+ ---+ -------+| ?<15 (or dialysis) ? ?| ?Stage five ? | ? Stage five ?+ ---+ ---+ -------+ *Each stage assumes the associated GFR level has been in effect for at least three months. ?Stages 1 to 5, with or without kidney disease, indicate chronic kidney disease. Notes: Determination of stages one and two (with eGFR >59mL/min/1.73 m2) requires estimation of kidney damage for at least three months as defined by structural or functional abnormalities of the kidney, manifested by either:Pathological abnormalities or Markers of kidney damage (including abnormalities in the composition of the blood or urine or abnormalities in imaging tests). Lab Interpretation (test code = 59408-5) Abnormal [facility] [id number] 04:03:00* Test Item Value Reference Range Interpretation Comme nts TROPONIN I (test code = [id number]) <0.012 See_Comment [Automated message] The system which generated this result transmitted reference range: <=0.034 ng/mL. The reference range was not used to interpret this result as normal/abnormal. AWA (test code = AWA) Equal or Less than 0.034 ng/ml---Normal ?Note: Cardiac troponin begins to rise 3-4 hours after the onset of ischemia. Repeat in 4-6 hours if the sample was drawn within 3-4 hours of the onset of the symptom and found normal. Between 0.035 and 0.120 ng/mL--- Borderline. Questionable myocardial injury or necrosis ? ?Note: Serial measurement may be necessary to confirm or exclude the diagnosis of myocardial injury or necrosis; Clinical correlation (symptoms, EKGs, imaging studies, and others) required; Repeat in 4-6 hours if clinically indicated. ? Equal or Higher than 0.121 ng/mL---Abnormal. Myocardial Injury or Necrosis Likely ? Biotin has been reported to cause a negative bias, interpret results relative to patient's use of biotin. ? Lab Interpretation (test code = 24398-7) [id number] 04:00:00* Test Item Value Reference Range Interpretation Comme nts NT-proBNP (test code = 5253630136) 31 pg/mL See_Comment [Automated message] The system which generated this result transmitted reference range: <=125. The reference range was not used to interpret this result as normal/abnormal. WAA (test code = AWA) Biotin has been reported to cause a negative bias, interpret results relative to patient's use of biotin. Lab Interpretation (test code = 32597-9) [facility]:51:00* Test Item Value Reference Range Interpretation Comme nts MAGNESIUM (test code = 1173672658) 1.7 mg/dL 1.7-2.4 Lab Interpretation (test cod e = 70474-7) [facility] 03:47:00* Test Item Value Reference Range Interpretation Comme nts APPEARANCE (test code = 9796928105) Clear Clear COLOR (test code = 6134952099) Yellow Yellow PH (test code = 3830476439) 4.8-8.0 SP GRAVITY (test code = 5079342319) 1.003-1.030 GLU U QUAL (test code = 5065027242) 50 mg/dL Normal A BLOOD (test code = 8301419678) Negative Negative KETONES (test code = 3313322487) Negative Negative PROTEIN (test code = 2887-8) Negative Negative UROBILIN (test code = 2793650060) Normal Normal BILIRUBIN (test code = 7332110932) Negative Negative NITRITE (test code = 4028674341) Negative Negative LEUK KEVEN (test code = 5403055920) Negative Negative RBC/HPF (test code = 7230680589) See_Comment [Automated messa ge] The system which generated this result transmitted reference range: 0 - 3 HPF. The reference range was not used to interpret this result as normal/abnormal. WBC/HPF (test code = 2116804667) See_Comment [Automated messa ge] The system which generated this result transmitted reference range: 0 - 5 HPF. The reference range was not used to interpret this result as normal/abnormal. BACTERIA (test code = 1738162882) Few Negative A MUCOUS (test code = 4958950576) Slight Negative LPF A SQ EPITH (test code = 8554877339) HPF Lab Interpretation (test code = 33465-4) Abnormal [facility] WITH [id number] 03:35:00* Test Item Value Reference Range Interpretation Comme nts WBC (test code = 6690-2) See_Comment [Automated messa ge] The system which generated this result transmitted reference range: 4.30 - 11.10 10*3/?L. The reference range was not used to interpret this result as normal/abnormal. RBC (test code = 789-8) See_Comment [Automated messa ge] The system which generated this result transmitted reference range: 3.93 - 5.25 10*6/?L. The reference range was not used to interpret this result as normal/abnormal. HGB (test code = 718-7) 12.9 g/dL 11.6-15 HCT (test code = 4544-3) 39.9 % 35.7-45.2 MCV (test code = 787-2) 86.9 fL 80.6-95.5 MCH (test code = 785-6) 28.1 pg 25.9-32.8 MCHC (test code = 786-4) 32.3 g/dL 31.6-35.1 RDW-SD (test code = 26883-2) 49.0 fL 39-49.9 RDW-CV (test code = 788-0) 15.3 % 12-15.5 PLT (test code = 777-3) See_Comment H [Automated messa ge] The system which generated this result transmitted reference range: 166 - 358 10*3/?L. The reference range was not used to interpret this result as normal/abnormal. MPV (test code = 64137-7) 8.7 fL 9.5-12.9 L NRBC/100 WBC (test code = 4273142380) See_Comment [Automated me ssage] The system which generated this result transmitted reference range: 0.0 - 10.0 /100 WBCs. The reference range was not used to interpret this result as normal/abnormal. NRBC x10^3 (test code = 4632533794) <0.01 See_Comment [Automated messa ge] The system which generated this result transmitted reference range: 10*3/?L. The reference range was not used to interpret this result as normal/abnormal. GRAN MAT (NEUT) % (test code = 770-8) 62.3 % IMM GRAN % (test code = 1083465662) 0.70 % LYMPH % (test code = 736-9) 28.4 % MONO % (test code = 5905-5) 5.8 % EOS % (test code = 713-8) 1.5 % BASO % (test code = 706-2) 1.3 % GRAN MAT x10^3(ANC) (test code = 1151437009) 4.47 10*3/uL 1.88-7.09 IMM GRAN x10^3 (test code = 5883222487) 0.05 10*3/uL 0-0.06 LYMPH x10^3 (test code = 731-0) 2.04 10*3/uL 1.32-3.29 MONO x10^3 (test code = 742-7) 0.42 10*3/uL 0.33-0.92 EOS x10^3 (test code = 711-2) 0.11 10*3/uL 0.03-0.39 BASO x10^3 (test code = 704-7) 0.09 10*3/uL 0.01-0.07 H Lab Interpretation (test code = 65555-5) Abnormal [facility]"
[2024-06-20] MEDS: POTASSIUM 25 MEQ EFFERV TAB PO ONE (14:42)
[2024-06-20] MEDS: SUCRALFATE 1 GM TABLET PO SCH (14:43)
[2024-06-20 15:07] LABS: Specific Gravity 1.013 (1.005-1.030); Urine Bilirubin NEGATIVE (Negative); Urine Blood Negative (Negative); Urine Clarity Clear (Clear); Urine Color Colorless (Yellow); Urine Glucose 4+ (Over) (Negative); Urine Ketones NEGATIVE (Negative); Urine Microscopic Reflex YN NO UMIC; Urine Nitrite NEGATIVE (Negative); Urine Protein NEGATIVE (Negative); Urine Urobilinogen Normal (Normal); Urine pH 5.5 (5.0-7.0)
[2024-06-20 15:07] LABS: Specific Gravity 1.013 (1.005-1.030)
[2024-06-20] MEDS: PANTOPRAZOLE 40 MG INJ IVP SCH (15:09)
--- NOTE | 2024-06-20 17:45 | EKG ---
Test Date: 2024-06-20 Test Time: 01:34:28 Dumbwaiter Operator: RON MEASUREMENT RESULTS: Intervals: Rate: 81 NC: 180 QRSD: 78 QT: 388 QTc: 450 [place]: P: 81 NC: 180 QRS: -23 T: 62 INTERPRETIVE STATEMENTS: Normal sinus rhythm Low voltage QRS Septal infarct, age undetermined Abnormal ECG Compared to ECG 08/23/2020 09:47:38 Low QRS voltage now present Myocardial infarct finding now present Left-axis deviation no longer present Electronically Signed On 06-20-24 17:44:08 CDT by Jim Daniels
[2024-06-20] MEDS ORDERED: ALBUTEROL INHALER 200 PUFF/6.7 GM IH PRN (19:09)
[2024-06-20] MEDS ORDERED: NITROGLYCERIN 0.4 MG/TAB SL PRN (19:11)
[2024-06-20] MEDS: ATORVASTATIN 40 MG TAB PO SCH (21:00)
[2024-06-20] MEDS: ZOLPIDEM TARTRATE 10 MG TABLET PO SCH (21:16)
[2024-06-20] MEDS: TRAZODONE 50 MG TABLET PO SCH (21:16)
[2024-06-20] MEDS: PROGESTERONE,MICRONIZED 100 MG CAP PO SCH (21:17)
[2024-06-21 05:47] LABS: Absolute Basophils 0.1 K/uL (0-0.5); Absolute Eosinophils 0.2 K/uL (0-0.5); Absolute Lymphocytes (CBC) 1.9 K/uL (0.7-4.9); Absolute Monocytes 0.4 K/uL (0.1-1.3); Absolute Neutrophil 2.5 K/uL (1.8-8.0); Basophils % 2.1 % (0-1.3); Eosinophils % 3.6 % (0-4.4); Hematocrit 37.4 % (36.0-45.0); Hemoglobin 12.1 g/dL (12.0-15.0); Lymphocytes % 37.6 % (15.3-44.8); MCHC 32.4 g/dL (32.0-36.0); MCV 83.3 fL (80-100); MPV 6.5 fL (7.6-11.3); Monocytes % 7.7 % (3.3-12.3); Nucleated Red Blood Cells % 0.1 % (0-0); Platelets 378 thou/uL (152-406); RBC Red Blood Cell Count 4.49 M/uL (3.86-4.86)
[2024-06-21 06:21] LABS: Albumin 3.2 g/dL (3.4-5.0); Albumin/Globulin Ratio 0.9 (1.1-1.8); Anion Gap 10.8 mEq/L (5.0-15.0); Bilirubin Total 0.3 mg/dL (0.2-1.0); Globulin 3.6 g/dL (2.3-3.5); Potassium 3.8 mEq/L (3.5-5.1); Protein, Total 6.8 g/dL (6.4-8.2); Thyroid Stimulating Hormone 2.14 uIU/mL (0.358-3.740)
[2024-06-21] MEDS ORDERED: ALBUTEROL INHALER 200 PUFF/6.7 GM IH PRN (07:12)
[2024-06-21] MEDS: NA CHLORIDE 0.9% 1,000 ML IV SCH (08:46)
[2024-06-21] MEDS: AZELASTINE NASAL SPRAY 30 ML NAS SCH (08:46)
[2024-06-21] MEDS: POTASSIUM CL SA 10 MEQ TAB PO ONE (08:47)
[2024-06-21] MEDS: ASPIRIN EC 81 MG TAB PO SCH (08:48)
[2024-06-21] MEDS: Empagliflozin 25 MG Tablet PO SCH (08:48)
--- NOTE | 2024-06-21 14:21 | P.PN ---
Date of Service: 06/21/24 Subjective Feeling better and slept well last night Chest and epigastric pain improved Troponin neg ROS 10 point ROS as noted above, otherwise negative Physical Exam General: Alert and Oriented x3, NAD HEENT: Atraumatic, Normocephalic, PERRLA Neck: Supple, trachea midline Respiratory: Clear to auscultation bilaterally, Normal air movement, on RA Cardiovascular: No edema, Normal pulses, RRR, Normal S1 S2 Capillary refill: <2 Seconds Gastrointestinal: Normal bowel sounds, Soft and benign on palpation, distended (obese) Musculoskeletal: No swelling Integumentary: No rashes Neurological: Normal speech, Normal tone Vitals Reviewed Problem list Chest pain rule out History of GERD Diabetes mellitus-IDDM Hypokalemia Transaminitis History of asthma Assessment and Plan Chest pain rule out - EKG: No obvious ST segment changes - Serial troponin 3.2/<3.0, <3.0 - transthoracic echocardiogram ordered - chest x-ray reports "No acute findings in the chest." - Consult Cardiology - recommendations appreciated - S/P aspirin 324 mg PO x 1 in ED - Start daily baby aspirin and statin - Symptom control with PRN acetaminophen, nitroglycerin, morphine - continuous telemetry - TSH/FreeT4 2.140/0.93, A1C 5.5, lipid panel Triglycerides 70, cholesterol 169, LDL of 94, HDL 61 History of GERD -presents with epigastric pain -continue Protonix and carafate Diabetes mellitus -on mounjaro for one month -serum glucose 143 -A1C 5.5 Hypokalemia -K 3.8 -replace PRN -monitor in AM labs Transaminitis -AST 221, ALT 471 -Gentle IVF started 06/21 -Monitor in AM labs -CT abd/pelvis reporting hepatomegaly History of asthma -continue home medications DVT ppx lovenox FUll code LOS 24 OBS Discharge Plan: Home Plan to discharge in: 24 Hours
--- NOTE | 2024-06-21 16:18 | P.CNS ---
Date of Consult: 06/21/24 Chief Complaint: chest pain r/o History of Present Illness: Patient with PMH of DM, Presented with chest pain that started yesterday, epigastric region, no radiation, associated with sweating and diapharesis, dneies any other cardiac symptoms. Allergies loratadine [From Claritin] Allergy (Severe, Verified 06/20/24 13:03) aggitation latex Allergy (Verified 08/23/20 09:36) Anaphylaxis levothyroxine sodium [From Synthroid] Allergy (Verified 08/23/20 09:36) Itching/Hives/Rash nectarines Allergy (Uncoded 08/23/20 09:36) Anaphylaxis Home medications list reviewed: Yes Home Medications: Albuterol Inhaler [Ventolin Inhaler] 2 puff IH Q6H PRN 08/23/20 Zolpidem Tartrate [Ambien] 10 mg PO BEDTIME 08/23/20 Azelastine HCl [Astepro] 1 spray KAVEH DAILY 06/20/24 Empagliflozin [Jardiance] 25 mg PO DAILY 06/20/24 Fexofenadine HCl [Carmen Allergy] 60 mg PO DAILY 06/20/24 Fluticasone [Flonase 50MCG Nasal [place]*] 2 sprays KAVEH DAILY 06/20/24 Metformin ER [Glucophage ER*] 500 mg PO DAILY 06/20/24 Progesterone, Micronized [Progesterone] 200 mg PO BEDTIME 06/20/24 Tirzepatide [Mounjaro] 5 mg SQ SEECOM 06/20/24 Trazodone [Desyrel*] 50 mg PO BEDTIME 06/20/24 - Past Medical/Surgical History Diabetic: Yes -: Asthma -: Diabetes mellitus -: Acid reflux - Family History Father Medical History: Other (see notes) ([place]) - Social History Alcohol use: No CD- Drugs: No Place of Residence: Home Review of Systems 10-point ROS is otherwise unremarkable Physical Examination Temp Pulse Resp BP Pulse Ox 97.4 F 75 16 151/69 H 99 06/21/24 12:00 06/21/24 12:00 06/21/24 12:00 06/21/24 12:00 06/21/24 12:00 General: Alert, In no apparent distress HEENT: Atraumatic, PERRLA, Mucous membr. moist/pink, EOMI, Sclerae nonicteric Neck: Supple, 2+ carotid pulse no bruit, No LAD, Without JVD or thyroid abn ormality Respiratory: Clear to auscultation bilaterally, Normal air movement Cardiovascular: Regular rate/rhythm, Normal S1 S2 Gastrointestinal: Normal bowel sounds, No tenderness Musculoskeletal: No tenderness Integumentary: No rashes Neurological: Normal gait, Normal speech, Normal tone, Normal affect Lymphatics: No axilla or inguinal lymphadenopathy - Problems (1) Chest pain Current Visit: Yes Status: Acute Plan: cardiac enzymes are negative x 3 outpatient stress test. (2) Palpitations Current Visit: Yes Status: Acute Plan: follow up in clinic for 7 days event monitor
[2024-06-21 16:24] VITALS: BP 146/70; TEMP 97.3
--- NOTE | 2024-06-21 17:58 | P.DS ---
Admission Date: 06/20/24 Discharge Date: 06/21/24 Disposition: ROUTINE DISCHARGE Discharge Condition: GOOD Reason for Admission: chest pain r/o Brief History of Present Illness: Mattie Trotter is a 54 year old female with Pmhx asthma and DM2 (mounjaro) who presents to the ED with chief complaint of chest pain/epigastric pain associated with Sweating, dizziness and almost passing out. She reports feeling epigastric pain and took antacids without relief. Her stomach continued to tighten and then started to sweat and feeling dizzy. She was wondering if this could be caused by the Mounjaro that she has been using for one month. She also reports her father having an NH with these similar symptoms as she has experienced. Initial vitals BP 150 / 75; Pulse 76; Resp 13; Temp 97.2; Pulse Ox 99% EKG preliminary read :Rate is 81 beats/min. Rhythm is regular, Normal Sinus Rhythm with No ectopy. QRS [place] is Normal. CO interval is normal. QRS interval is normal. QT interval is normal. No Q waves. No ST changes noted laboratory evaluation Potassium 3.2, Serum glucose 143, Torponin 3.2, AST/ALT 100/67 Mattie will be admitted to hospitalist service for further evaluation of chest and epigastric pain. Vital Signs/Physical Exam: Temp Pulse Resp BP Pulse Ox 97.3 F 74 14 146/70 H 95 06/21/24 16:00 06/21/24 16:00 06/21/24 16:00 06/21/24 16:00 06/21/24 16:00 Laboratory Data at Discharge: WBC 5.10 thou/uL (4.3-10.9) 06/21/24 05:17 Hgb 12.1 g/dL (12.0-15.0) 06/21/24 05:17 Hct 37.4 % (36.0-45.0) 06/21/24 05:17 Plt Count 378 thou/uL (152-406) 06/21/24 05:17 Sodium 141 mEq/L (136-145) 06/21/24 05:17 Potassium 3.8 mEq/L (3.5-5.1) D 06/21/24 05:17 BUN 22 mg/dL (7-18) H 06/21/24 05:17 Creatinine 0.76 mg/dL (0.55-1.02) 06/21/24 05:17 Glucose 113 mg/dL (74-106) H 06/21/24 05:17 Magnesium 1.9 mg/dL (1.6-2.4) 06/20/24 02:15 Total Bilirubin 0.3 mg/dL (0.2-1.0) 06/21/24 05:17 AST 221 U/L (15-37) H 06/21/24 05:17 ALT 471 U/L (13-56) H 06/21/24 05:17 Alkaline Phosphatase 148 U/L (45-117) H D 06/21/24 05:17 Triglycerides 70 mg/dL (<150) 06/21/24 05:17 Cholesterol 169 mg/dL (<200) 06/21/24 05:17 HDL Cholesterol 61 mg/dL (40-60) H 06/21/24 05:17 Cholesterol/HDL Ratio 2.77 06/21/24 05:17 Lipase 56 U/L (13-75) 06/20/24 02:15 Home Medications: Albuterol Inhaler [Ventolin Inhaler*] 2 puff IH Q6H PRN 08/23/20 Zolpidem Tartrate [Ambien*] 10 mg PO BEDTIME 08/23/20 Azelastine HCl [Astepro] 1 spray KAVEH DAILY 06/20/24 Empagliflozin [Jardiance] 25 mg PO DAILY 06/20/24 Fexofenadine HCl [Carmen Allergy] 60 mg PO DAILY 06/20/24 Fluticasone [Flonase 50MCG Nasal [place]*] 2 sprays KAVEH DAILY 06/20/24 Metformin ER [Glucophage ER*] 500 mg PO DAILY 06/20/24 Progesterone, Micronized [Progesterone] 200 mg PO BEDTIME 06/20/24 Tirzepatide [Mounjaro] 5 mg SQ SEECOM 06/20/24 Trazodone [Desyrel*] 50 mg PO BEDTIME 06/20/24 Pantoprazole Sodium [Protonix] 40 mg PO DAILY 30 Days #30 tab 06/21/24 Sucralfate [Carafate*] 1 gm PO ACHS 7 Days #28 tab 06/21/24 New Medications: Sucralfate [Carafate*] 1 gm PO ACHS 7 Days #28 tab Pantoprazole Sodium [Protonix] 40 mg PO DAILY 30 Days #30 tab Physician Discharge Instructions: 1. Please call and schedule a follow-up appointment with your PCP in 3-5 days - Please follow-up with your PCP for medication refills/adjustments 2. Please call and schedule a follow-up appointment with Dr. Daniels in one week -Outpatient stress test and heart monitor 3. Continue heart healthy diet 4. No activity restrictions 5. Return to the ED if symptoms worsen New medications to treat GERD episodes Carafate 1 tab with meals and before bedtime for seven days protonix 40 mg daily Diet: AHA Activity: Ad susana Followup: AUDREY WHIPPLE [Primary Care Provider] - Jim Daniels MD [ACTIVE - CAN ADMIT] -
[2024-06-21 18:01] VITALS: O2SAT 98
== END 2024-06-21 19:40 | disposition home or self-care (01) ==
LOC: ER 01:27 → ERHOLD 05:58 → 2ND 12:30
PROVIDERS: ADMIT Family Medicine; ATTEND Internal Medicine
DX: R07.9 Chest pain, unspecified (principal); J45.909 Unspecified asthma, uncomplicated; E11.9 Type 2 diabetes mellitus without complications; R42 Dizziness and giddiness; R10.13 Epigastric pain; K21.9 Gastro-esophageal reflux disease without esophagitis; E87.6 Hypokalemia; R74.01 Elevation of levels of liver transaminase levels; R00.2 Palpitations; Z88.8 Allergy status to other drugs, medicaments and biological substances; Z91.040 Latex allergy status; Z82.49 Family history of ischemic heart disease and other diseases of the circulatory system; Z79.85 Long-term (current) use of injectable non-insulin antidiabetic drugs
CPT/HCPCS: 93005; 85025 ×2; 80048; 36415 ×2; 83735; 81025; 80061; 82947 ×6; 80076; 84443; 81003; 83036; 84484 ×3; 84439; 83690; 80053; 74177; 71045; 94760 ×2; 99285; Q9967; J2470 ×3; J1650; J7030 ×2; G0378